=== PATIENT | male | born 1945 | race Caucasian/White ===

== ENCOUNTER 2016-10-30 16:31 | Inpatient (IN) | payer MEDICARE, OTHER ==
[~2016-10-30] VITALS: Ht 172.7 cm; Wt 87.1 kg
[~2016-10-30 16:31] MED LIST changes: -ARIP10TA17 PO; -BUPR100T13 PO; -DONE10TA PO; -GENT5DRO6 BOTH EYES; -IOHEXOL 300 MG/ML 50ml INJECTION ONE; -MEMA28CA PO; -NORMAL SALINE 100 ML ONE; -POLY30DR BOTH EYES; -SALINE FLUSH 10ml SYRINGE ONE; -TAMS0.4C47 PO; -VORT10TA PO
--- OUTSIDE RECORDS SUMMARY | 2016-10-30 16:35 | XMS REPORT | Referral Summary ---
Author Author [facility] Organization [facility] Address Unknown Phone Unavailable Care Team Providers Care Jig Filler Name Role Phone Dom Sierra II Primary Care Physician [phone] Encounter [facility] [id number] Date(s): 05/17/15 - 05/17/15 [facility] [address] [address]- Discharge Diagnosis: Bilateral sensorineural hearing loss Discharge Disposition: 01-Home or Self Care Attending Physician: Cookie Driver Admitting Physician: Cookie Driver Vital Signs No data available for this section Problem List Condition Effective Dates Status Health Status Informant Bilateral Active sensorineural hearing loss(Confirmed) Allergies, Adverse Reactions, Alerts No data available for this section Medications No data available for this section Results No data available for this section Immunizations No data available for this section Procedures No data available for this section Social History No data available for this section Assessment and Plan No data available for this section
--- OUTSIDE RECORDS SUMMARY | 2016-10-30 16:35 | XMS REPORT | Referral Summary ---
Author Author [facility] Organization [facility] Address Unknown Phone Unavailable Care Team Providers Care Skid Adzer Name Role Phone Dom Sierra II Primary Care Physician [phone] Encounter [facility] [id number] Date(s): 09/13/15 - 09/13/15 [facility] [address] [place] [address]- Discharge Diagnosis: Bilateral sensorineural hearing loss Discharge Disposition: 01-Home or Self Care Attending Physician: Cookie Driver Admitting Physician: Cookie Driver Referring Physician: Bora Jones MD Vital Signs No data available for this [...]
--- OUTSIDE RECORDS SUMMARY | 2016-10-30 16:35 | XMS REPORT | Referral Summary ---
Author Organization Unknown Address Unknown Phone Unavailable Care Team Providers Care Surgical Coordinator Name Role Phone Dom Sierra II Primary Care Physician [phone] Encounter [facility] [id number] Date(s): 09/27/14 - 09/27/14 [facility] [address] [place] [address]- Discharge Diagnosis: Sensorineural hearing loss, bilateral Discharge Disposition: Home or Self Care Attending Physician: Cookie Driver Admitting Physician: Cookie Driver Vital Signs No data available for this section Problem List No data available for this section Allergies, Adverse Reactions, Alerts No data available for this section Medications No data available for this section Results No data available for this section Immunizations No data available for this section Procedures No data available for this section Social History No data available for this section Assessment and Plan No data available for this section
--- OUTSIDE RECORDS SUMMARY | 2016-10-30 16:35 | XMS REPORT | Referral Summary ---
Author Author [facility] Organization [facility] Address Unknown Phone Unavailable Care Team Providers Care Solution Design Engineer Name Role Phone Dom Sierra II Primary Care Physician [phone] Encounter [facility] [id number] Date(s): 03/04/15 - 03/04/15 [facility] [address] [place] [address]- Discharge Diagnosis: Bilateral sensorineural hearing loss Discharge [...]
--- OUTSIDE RECORDS SUMMARY | 2016-10-30 16:35 | XMS REPORT | Referral Summary ---
Author Author [facility] Organization [facility] Address Unknown Phone Unavailable Care Team Providers Care Java Software Architect Name Role Phone Dom Sierra II Primary Care Physician [phone] Encounter [facility] [id number] Date(s): 11/25/14 - 11/25/14 [facility] [address] [place] [address]- Discharge Diagnosis: Bilateral sensorineural hearing loss Discharge [...]
--- OUTSIDE RECORDS SUMMARY | 2016-10-30 16:35 | XMS REPORT | Referral Summary ---
Author Author [facility] Organization [facility] Address Unknown Phone Unavailable Care Team Providers Care Polysom Tech Name Role Phone Dom Sierra II Primary Care Physician [phone] Encounter [facility] [id number] Date(s): 02/01/15 - 02/01/15 [facility] [address] [place] [address]- Discharge Diagnosis: Bilateral sensorineural hearing loss Discharge [...]
--- OUTSIDE RECORDS SUMMARY | 2016-10-30 16:35 | XMS REPORT | Continuity of Care Document ---
Author Author [facility] Organization [facility] Address Unknown Phone Unavailable Allergies Medications Problems Procedures Results Encounters ACCT No. Visit Date/Time Discharge Status Pt. Type Provider Facility Loc./Unit Complaint [id number] 06/29/2016 14:10:00 2015 23:59:00 DIS Outpatient Cookie Driver [facility] COOKIE REFIT REPAIRED AID [id number] 09/13/2015 14:00:00 2015 23:59:00 DIS Outpatient Cookie Driver [facility] COOKIE HAC REMOTE NOT WORKING [id number] 05/17/2015 16:03:00 2014 23:59:00 DIS Outpatient Cookie Driver [facility] COOKIE HAC LEFT AID [id number] 03/04/2015 15:17:00 2014 23:59:00 DIS Outpatient Cookie Driver [facility] cNANCY REFIT REPAIRED HEARING AID [id number] 02/01/2015 16:12:00 2014 23:59:00 DIS Outpatient VillaCookie [facility] COOKIE PAIR REMOTE
--- NOTE | 2016-10-30 16:41 | ERPDOC ---
Departure Disposition Decision Date: Oct 30, 2016 Disposition Decision Time: 18:06 Disposition: 64 TO [facility] Impression Impression Impression: Primary Impression: Cognitive and neurobehavioral dysfunction Additional Impression: Dementia with behavioral disturbance Dementia type: Alzheimer's disease Alzheimer's disease onset: unspecified onset Qualified Codes: F02.81 - Dementia in other diseases classified elsewhere with behavioral disturbance; G30.8 - Other Alzheimer's disease Severity: Moderate Condition: Stable Seen By: Physician only Referrals: ROMERO STOCKTON II, MD (Family) Problems/Meds/Labs Reviewed?: Yes Medications reviewed and manag: Yes Follow up care ordered?: Yes Mental Status: Alert, Oriented Scripts Donepezil HCl (Aricept) 10 Mg Tablet 10 MG PO HS for Dementia for 30 Days, #30 TAB Prov: CAMILLE PAK MD 11/06/16 Polyvinyl Alcohol/Povidone/Pf (Refresh Classic Eye Drops) 1 Each Droperette 1 DROP BOTH EYES PRN Y for DRY EYES for 30 Days Prov: LARISSA LEDESMA APRN 11/06/16 Gentamicin Sulfate (Gentak) 5 Ml Drops 2 DROP BOTH EYES QID for 4 Days, DROP Prov: LARISSA LEDESMA APRN 11/06/16 HPI - Psychosocial General Chief Complaint: Psychiatric Problems Stated Complaint: EVAL Time Seen by MD: 16:41 Source: patient, family Exam Limitations: no limitations HPI - Psychosocial Initial Comments Patient is a 71-year-old male presents emergency primary for evaluation of increasing dementia. Patient lives at home with his , has been having increasing outbursts of anger and irritability with Y feeling that she is in danger. Patient was seen by primary medical physician today outpatient laboratories and CT done were noncontributory. Family concern, inability to cares for patient at home so patient was brought to the ER for evaluation. Allergies: Coded Allergies: NKDA (Verified Allergy, Unknown, 10/30/16) Past History Past Medical History Musculoskeletal: osteoarthritis Psychological: dementia Surgical History General: EGD, colonoscopy, hernia Vaccines Hx Influenza Vaccination: Yes (04/2015) Hx Pneumococcal Vaccination: Yes (2010) Social History Smoking Status: Never smoker Substance Use Type: does not use Alcohol Intake: none Review of Systems Constitutional Constitutional: DENIES: appetite decrease, chills, dizziness, fever, weakness Eyes Vision: DENIES: loss of visual rehman ENMT Sinuses: DENIES: congestion, rhinorrhea Mouth/Throat: DENIES: scratchy throat, sore throat Cardiovascular Cardiac: DENIES: chest pain, dyspnea on exertion Pulmonary Respiratory: DENIES: cough, dyspnea, sputum, tachypnea GI Upper Abdomen: DENIES: nausea, pain, vomiting Lower Abdomen: DENIES: constipation, diarrhea, pain General: DENIES: frequency, urgency Musculoskeletal General: DENIES: cramps, pain, weakness Integumentary Skin: DENIES: color change, itching, rash Neurological General: DENIES: change in strength, headache, numbness, weakness Psychiatric Psychiatric: anxiety, emotional instability, irritability Endocrine Endocrine: DENIES: heat/cold intolerance Hematologic/Lymphatic Hematologic/Lymphatic: DENIES: anemia Physical Exam General General Nourishment: well nourished, well developed General Body Habitus: well groomed Vitals and Pain Weight: Kilograms: Height (feet): 5 Height (inches): 10.00 Triage Pain Scale: RN VS reviewed by Provider: Yes Eyes (brief) Eyes Brief: found: EOMI, PERRL ENMT (brief) ENMT Brief: FOUND: TM clear, TM good light reflex, ear canals clear, mucosa moist, normal dentition, NOT FOUND: nasal erythema, nasal exudate, nasal swelling, pharnyx erythema, tonsillar deviation Neck (brief) Neck: NOT FOUND: adenopathy, spasm, tenderness Respiratory (brief) Respiratory: FOUND: clear all rehman, equal bilaterally, NOT FOUND: rales, wheezes Cardiovascular (brief) Cardiac: FOUND: regular rate, regular rhythm Capillary Refill: <2 sec Abdomen (brief) Abdominal Brief: FOUND: bowel normo active x4, soft, NOT FOUND: distended, tender Lymphatic (brief) Lymphatic Brief: NOT FOUND: adenopathy Musculoskeletal (brief) Musculoskeletal Brief: NOT FOUND: spasm, tenderness Integumentary (brief) Integumentary Brief: FOUND: dry, pink, warm, NOT FOUND: rash Neurologic (brief) Neurological Brief: FOUND: CN w/o gross def to obs, motor-no gross deficits, sensory-no gross deficits Psychiatric (brief) Psychiatric Brief: FOUND: alert, oriented Differential Diagnoses Considering: Anxiety, Bipolar, Borderline PD, Cerebral Hemorrhage, Delirium, Dementia, Depression, Hallucinations, Hypoglycemia, Other Intoxication, Kami, Acute Psychosis Progress Results/Orders Orders Procedure Category Date Status Time EKG EKG 10/30/16 Taken 16:39 Cbc W/Auto LAB 10/30/16 Complete Diff-Reflex Manual 16:39 Ua, Dip Wreflex LAB 10/30/16 Complete Microsc & Bread Wrapping Machine Feeder 16:39 Tsh - Thyroid Stim LAB 10/30/16 Complete Hormone 16:39 Chest 1 View RAD 10/30/16 Resulted 16:50 Admit To [facility] ED ADM 10/30/16 Transmitted Unit (Gen) 18:07 Lab Results Laboratory Tests Test 10/30/16 17:03 10/30/16 17:59 White Blood Count 6.9T/MM3 Red Blood Count 5.32M/MM3 Hemoglobin 15.3GM/DL Hematocrit 46.5% Mean Corpuscular Volume 87.4UM3 Mean Corpuscular Hemoglobin 28.8UUG Mean Corpuscular Hemoglobin Concent 32.9GM/DL RDW Standard Deviation 40.9FL Platelet Count 157T/MM3 Mean Platelet Volume 9.8UM3 Immature Granulocyte % (Auto) 0.1% Neutrophils (%) (Auto) 66.2% Lymphocytes (%) (Auto) 25.3% Monocytes (%) (Auto) 5.9% Eosinophils (%) (Auto) 2.2% Basophils (%) (Auto) 0.3% Absolute Immature Granulocyte (auto 0.01T/MM3 Absolute Neutrophils (auto) 4.6T/MM3 Absolute Lymphocytes (auto) 1.8T/MM3 Absolute Monocytes (auto) 0.4T/MM3 Absolute Eosinophils (auto) 0.2T/MM3 Absolute Basophils (auto) 0.0T/MM3 Turbidity < 20 Sodium Level 144MEQ/L Potassium Level 4.5MEQ/L Chloride Level 106MEQ/L Carbon Dioxide Level 25MEQ/L Anion Gap 13MEQ/L Blood Urea Nitrogen 24.0MG/DL Creatinine 1.2MG/DL Glomerular Filtration Rate Calc 60 BUN/Creatinine Ratio 20RATIO Glucose Level 103MG/DL Hemoglobin A1c 5.5% Calculated Osmolality 281MOSM/KG Calcium Level 9.7MG/DL Total Bilirubin 1.10MG/DL Icterus Index < 2 Aspartate Amino Transf (AST/SGOT) 20U/L Alanine Aminotransferase (ALT/SGPT) 22U/L Alkaline Phosphatase 70U/L Total Protein 6.8G/DL Albumin 4.3G/DL Globulin 2.5G/DL Albumin/Globulin Ratio 1.7RATIO Prealbumin 28.7MG/DL Triglycerides Level 108MG/DL Cholesterol Level 142MG/DL LDL Cholesterol, Calculated 82.4 VLDL Cholesterol 21.6MG/DL HDL Cholesterol Direct 38MG/DL Cholesterol/HDL Ratio 3.7RATIO Vitamin B12 Level 403PG/ML Folate > 20.0NG/ML Thyroid Stimulating Hormone (TSH) 0.99MIU/L Chemistry Specimen Hemolysis < 15 Rapid Plasma Reagin Nonreactive Urine Collection Type Voided-not cc-midstr Urine Color Yellow Urine Turbidity Clear Urine pH 6.0 Urine Specific [place] 1.015 Urine Protein Negative Urine Glucose (UA) Negative Urine Ketones Negative Urine Blood Negative Urine Nitrite Negative Urine Bilirubin Negative Urine Urobilinogen 2.0EU/DL Urine Leukocyte Esterase Negative Urinalysis Comment Microscopic not ind. Progress Progress Patient CT scan and laboratories noncontributory from earlier today, have completed medical clearance workup for [facility]. Patient is been screening for [facility] and found to be acceptable for their unit. Patient will be admitted to the [facility], DPOA will sign in EKG EKG : Rate: 60-100 Rhythm: sinus [place]: normal QRS: normal Intervals: normal ST/T: non-specific changes Interpreted by: signing physician Xray Xray : Xray: CXR PA/Lat Interpretation: Normal, Interpreted by ROS Cruz MD Oct 30, 2016 16:41
--- NOTE | 2016-10-30 16:55 | NUR ---
LAB MEAT SEAFOOD ASSOCIATE IN ROOM TO DRAW LABS
[2016-10-30] MEDS ORDERED: BUPR100T13 PO (16:56)
[2016-10-30] MEDS ORDERED: ARIP10TA17 PO (17:02)
[2016-10-30] MEDS ORDERED: VORT10TA PO (17:02)
[2016-10-30] MEDS ORDERED: MEMA28CA PO (17:02)
[2016-10-30] MEDS ORDERED: TAMS0.4C47 PO (17:02)
--- NOTE | 2016-10-30 17:04 | NUR ---
GENERATIONS GENERATIONS SCREEN BEING DONE.
--- OUTSIDE RECORDS SUMMARY | 2016-10-30 17:12 | XMS REPORT | Continuity of Care Document ---
Author Author [facility] Organization [facility] Address Unknown Phone Unavailable Allergies Medications Problems Procedures Results Encounters ACCT No. Visit Date/Time Discharge Status Pt. Type Provider Facility Loc./Unit Complaint [id number] 06/29/2016 14:10:00 2015 23:59:00 DIS Outpatient Cookie Driver Via [facility] COOKIE REFIT REPAIRED AID [id number] 09/13/2015 14:00:00 2015 23:59:00 DIS Outpatient Cookie Driver Via [facility] COOKIE HAC REMOTE NOT WORKING [id number] 05/17/2015 16:03:00 2014 23:59:00 DIS Outpatient Cookie Driver [facility] COOKIE HAC LEFT AID [id number] 03/04/2015 15:17:00 2014 23:59:00 DIS Outpatient Cookie Driver Via [facility] cNANCY REFIT REPAIRED HEARING AID [id number] 02/01/2015 16:12:00 2014 23:59:00 DIS Outpatient VillaCookie [facility] COOKIE PAIR REMOTE
[2016-10-30 17:20] LABS: BASOPHILS % (AUTO) 0.3 % (0-2); EOSINOPHILS # (AUTO) 0.2 T/MM3 (0-0.5); EOSINOPHILS % (AUTO) 2.2 % (0-4); HCT - HEMATOCRIT 46.5 % (41-53); HGB - HEMOGLOBIN 15.3 GM/DL (13.5-17.5); IMMATURE GRANULOCYTE # (AUTO) 0.01 T/MM3 (0.00-0.03); IMMATURE GRANULOCYTE % (AUTO) 0.1 % (0.0-0.5); LYMPHOCYTES # (AUTO) 1.8 T/MM3 (1-4.8); LYMPHOCYTES % (AUTO) 25.3 % (23-45); MEAN CORPUSCULAR HGB 28.8 UUG (26-34); MEAN CORPUSCULAR HGB CONC(MCHC 32.9 GM/DL (31-37); MEAN CORPUSCULAR VOLUME 87.4 UM3 (80-100); MEAN PLATELET VOLUME 9.8 UM3 (9.4-12.4); MONOCYTES # (AUTO) 0.4 T/MM3 (0-0.8); MONOCYTES % (AUTO) 5.9 % (0-9.0); NEUTROPHILS #(AUTO)-ABSOLUTE 4.6 T/MM3 (1.8-7.7); NEUTROPHILS % (AUTO) 66.2 % (33-66); RED BLOOD COUNT 5.32 M/MM3 (4.50-5.90); WBC - WHITE BLOOD COUNT 6.9 T/MM3 (4.5-11.0)
--- NOTE | 2016-10-30 17:35 | NUR ---
COMMUNICATION ELIA COMPLETE WITH EVALUATION.
--- NOTE | 2016-10-30 17:39 | NUR ---
XRAY XRAY IN ROOM W/ PT. FOR PORTABLE
[2016-10-30 18:03] LABS: BLOOD, URINE NEGATIVE (NEGATIVE); COLOR,URINE YELLOW (YELLOW); LEUKOCYTE ESTERASE ,URINE NEGATIVE (NEGATIVE); NITRITE,URINE NEGATIVE (NEGATIVE)
--- NOTE | 2016-10-30 18:07 | NUR ---
COMMUNICATION SPOKE WITH FRANCISCO IN [facility]. HE WILL COME GET THE PATIENT HERE IN A LITTLE BIT.
--- OUTSIDE RECORDS SUMMARY | 2016-10-30 18:28 | XMS REPORT | Continuity of Care Document ---
Author Author [facility] Organization [facility] Address Unknown Phone Unavailable Allergies Medications Problems Procedures Results Encounters ACCT No. Visit Date/Time Discharge Status Pt. Type Provider Facility Loc./Unit Complaint [id number] 06/29/2016 14:10:00 2015 23:59:00 DIS Outpatient Cookie Driver Via [facility] COOKIE REFIT REPAIRED AID [id number] 09/13/2015 14:00:00 2015 23:59:00 DIS Outpatient Cookie Driver Via [facility] COOKIE HAC REMOTE NOT WORKING [id number] 05/17/2015 16:03:00 2014 23:59:00 DIS Outpatient Cookie Driver Via [facility] COOKIE HAC LEFT AID [id number] 03/04/2015 15:17:00 2014 23:59:00 DIS Outpatient Cookie Driver Via [facility] cNANCY REFIT REPAIRED HEARING AID [id number] 02/01/2015 16:12:00 2014 23:59:00 DIS Outpatient Villa[facility] COOKIE PAIR REMOTE
--- NOTE | 2016-10-30 19:24 | NUR ---
NOURISHMENT PATIENT OFFERED PUDDING, CRACKERS AND A SODA.
--- NOTE | 2016-10-30 19:36 | NUR ---
COMMUNICATION SPOKE WITH SON. HAD HIM CALL AND CHECK ON HIS MOM, THE DPOA.
--- NOTE | 2016-10-30 20:26 | NUR ---
FAMILY FINALLY GETS BACK WITH [facility] PAPERWORK. [facility] CALLED.
--- NOTE | 2016-10-30 20:55 | NUR ---
DEPART PATIENT TRANSFERRED TO [facility] WITH [facility] STAFF VIA WHEELCHAIR.
--- NOTE | 2016-10-30 21:00 | NUR ---
Admission Pt is a 71 y/o male admitted to [facility] at 2054 via WC to room [address] [facility], originally coming from home with his spouse. Pt accompanied by family, , son, and daughter in law and [facility] RN. Pt is assist x 1 to stand, but assist x 2 to help with pt sitting down, as pt is very stiff and rigid and has difficulty bending his knees to sit. Pt alert to person only, able to give full name and date, but then is non-sensical when answering questions concerning his current status. Pt in pleasant mood at admission. Flat affect with appropriate behaviors. Hygiene clean with appropriate dress for the season. No skin issues or conditions noted. No abrasions noted. Pt has no valuables left with him. took his wallet home with her. When asking the pt why he is here, pt was unable to give appropriate response and stated "Yes that is a good corporation". Pt is very confused, needing lot of cueing and redirection. Pt stated pt is here due to recent and frequent falling spells at home. denied any aggressive behaviors by spouse during cares. Pt was fatigued, so family was oriented to the unit and to visitation hours. Pt currently sleeping with a CPAP on. Bed rails up x 2 and alarm on. Will continue to monitor
[2016-10-30] MEDS ORDERED: BISACODYL 5 MG E.C. TABLET PO PRN (21:45)
[2016-10-30] MEDS ORDERED: LORAZEPAM 2 MG/ML INJECTION IM PRN (21:45)
[2016-10-30] MEDS ORDERED: HALOPERIDOL 5 MG/ML INJECTION IM PRN (21:45)
[2016-10-30] MEDS ORDERED: HALOPERIDOL 0.5 MG TABLET PO PRN (21:45)
[2016-10-30] MEDS ORDERED: LORAZEPAM 0.5 MG TABLET PO PRN (21:45)
[2016-10-30] MEDS ORDERED: PRN ORDERS MC (21:45)
[2016-10-30 21:51] VITALS: PULSE 65; RESP 15
[2016-10-30 22:01] VITALS: PULSE 68; RESP 16; O2SAT 96
[2016-10-30 22:02] VITALS: Ht 172.7 cm; Wt 87.1 kg
[2016-10-30 22:17] VITALS: BP 162/96; PULSE 65; RESP 15; TEMP 97.9; O2SAT 96
[2016-10-30 22:37] LABS: ALBUMIN 4.3 G/DL (3.5-5.0); ALBUMIN/GLOBULIN RATIO 1.7 RATIO (1.1-2.2); ALKALINE PHOSPHATASE 70 U/L (38-126); ALT (SGPT) 22 U/L (21-72); ANION GAP 13 MEQ/L (5-15); AST (SGOT) 20 U/L (17-59); BUN/CREATININE RATIO 20 RATIO (6-26); CALCIUM 9.7 MG/DL (8.4-10.2); CHLORIDE 106 MEQ/L (98-107); CO2 - CARBON DIOXIDE 25 MEQ/L (22-30); CREATININE 1.2 MG/DL (0.8-1.5); GLOMERULAR FILTRATION RATE 60; GLUCOSE 103 MG/DL (75-110); POTASSIUM 4.5 MEQ/L (3.6-5); SODIUM 144 MEQ/L (134-144); TOTAL PROTEIN 6.8 G/DL (6.3-8.2)
[2016-10-30 22:45] LABS: PREALBUMIN 28.7 MG/DL (17.6-36.0)
[2016-10-30 23:10] LABS: HEMOGLOBIN A1C 5.5 % (6.1-7.9)
--- NOTE | 2016-10-31 01:00 | NUR ---
Bed time Pt is new admit at 2054. Has been in bed since admit, falling asleep during assessment, and falling asleep for the night at 2200.
--- NOTE | 2016-10-31 01:00 | NUR ---
Chart Check 24 hour chart check completed
--- NOTE | 2016-10-31 01:59 | NUR ---
Tobacco Consult Patient unable to state smoking history, per /dpoa patient has never smoked. RT consulted for admission assessment.
[2016-10-31 03:42] LABS: VITAMIN B12 - BATCH 403 PG/ML (239-931)
[2016-10-31 04:08] LABS: FOLATE > 20.0 NG/ML (2.76-20)
--- NOTE | 2016-10-31 05:42 | NUR ---
Summary Pt is a new admit to room 193. Pt has been sleeping since 2199, but was up at 0115, sitting on side of bed and had taken off his CPAP and all his clothes. Toileting offered. Staff dressed pt and placed CPAP back on. Pt was confused at that time, not knowing what to do with his legs. Pt is alert to person. Up assist x 1-2. Pt has been rigid and tense when asking pt to sit during transferring or toileting. Lots of cueing and directing is required with pt as he does not comprehend what he needs to do. Pt answers some questions appropriately, and others he responds in non-sensical sentences. Pt has not displayed any verbal or physical aggression since admission. No PRNs given. Pt is high risk for falls, as stated he has been having falling episodes at home. Pt does not use any assistive devices to ambulate at home, per . Currently sleeping. Bed rails up x 2 and alarm on. Will continue to monitor
[2016-10-31] MEDS ORDERED: BISACODYL 10 MG SUPPOSITORY RECTALLY PRN (08:15)
--- NOTE | 2016-10-31 08:17 | DI ---
Indication: ITS.REASON: [facility] eval PROCEDURE: CHEST 1 VIEW: Encounter: Initial Comparison: None FINDINGS: The lungs are clear. There is no abnormal airspace opacity, pleural effusion or pneumothorax identified. The heart size, pulmonary vasculature and mediastinum are within normal limits. IMPRESSION: No acute cardiopulmonary abnormality. .
[2016-10-31 08:44] VITALS: BP 138/84; PULSE 55; RESP 14; TEMP 97.7; O2SAT 95
[2016-10-31] MEDS ORDERED: MEMANTINE HCL 28 MG PO SCH (09:00)
[2016-10-31] MEDS ORDERED: DONEPEZIL 10 MG TABLET PO SCH (09:00)
--- NOTE | 2016-10-31 10:00 | NUR ---
Patient slept a total of 10.75 hours last night
[2016-10-31] MEDS: ARIPIPRAZOLE 10 MG TABLET PO SCH (10:40)
[2016-10-31] MEDS: [UNRECOGNIZED DRUG - OTHER] PO SCH (10:41)
[2016-10-31] MEDS: MECLIZINE 12.5 MG TABLET PO SCH (10:41)
[2016-10-31] MEDS: ASPIRIN *EC* 81mg TABLET PO SCH (10:41)
[2016-10-31] MEDS: MEMANTINE 5 MG TABLET PO SCH ×2 (10:41→19:37)
[2016-10-31] MEDS: VORTIOXETINE 10 MG TABLET PO SCH (10:41)
--- NOTE | 2016-10-31 13:08 | NUR ---
Patient Status Patient sleeps in until 1000; slept through VS and assessment this morning. He greets this health underwriter directly this morning with a smile and acknowledgment that he is in the hospital. He is not able to tell [me] the name of this town or day of the week. He is cooperative with cares, uses the bathroom and is able to make his needs known. During ambulation from bathroom to bed patient leaned against the door frame and began shaking quite Addendum: 10/31/16 at 1314 by FLORA MG RN *and began shaking, almost "convulsing" for approx 4 seconds. He requested to sit in the wheelchair to be taken to breakfast. Patient's called for a status update, stated that he "shakes" like that "often". He denies pain or discomfort. He ate 50% of breakfast and 100% of lunch independently, took all medications whole one at a time per his request. Presently he is in the day room with other patients and staff tossing the [email or web address] ball
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
--- NOTE | 2016-10-31 14:43 | NUR ---
ELIECER CM LEFT FOR PT SPOUSE NEELAM. CM EXPLAINED ROLE AND PROVIDED CONTACT INFORMATION.
--- NOTE | 2016-10-31 14:51 | NUR ---
BLOCK PAVER--PM GROUP Pt. was in bed sleeping and did not participate in afternoon psychoeducational group facilitated by [facility].
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
--- NOTE | 2016-10-31 15:47 | HPPDOC ---
KELTON MERAZ V BAGGAGE PORTER 10/31/16 1542: HPI - Adult Date DATE: 10/31/16 TIME: 15:37 General Chief Complaint: Dementia with behaviors History of Present Illness Dejuan is a pleasant 71-year-old male who was brought to the emergency room last evening for evaluation of behaviors and aggression towards his at home. It is unclear specifics for timeframe in which this has been ongoing as emergency room documentation is not completed. Patient has a known history of Alzheimer's dementia. In the emergency room further evaluation including laboratory studies were obtained. The BBC count 6.9, hemoglobin 15.3, hematocrit 46.5, platelet count 157. Sodium 144, potassium 4.5, BUN 24, creatinine 1.2, hemoglobin A1c 5.5. TSH 0.99. A urinalysis was obtained that was unremarkable. initial vital signs are reviewed. Denies 7.8, pulse 61, respiration rate 14, blood pressure 163/88, room air saturations 96%. Patient was screened and accepted to the [facility] for further psychiatric evaluation and treatment. Dejuan is seen this morning for initial consultation. He is alert and appropriate. He is unable to give any information guarding past medical history. Past Medical History Past Medical History Alzheimer's dementia. Hypertriglyceridemia. Depression Anxiety Osteoarthritis Surgical History Patient's Surgical History: EGD/colonoscopy-04/2011. Right inguinal hernia repair at age 27 Current Medications Home Meds Reported Medications Tamsulosin HCl (Tamsulosin HCl) 0.4 Mg Cap.er.24h, 0.4 MG PO HS, CAP Take 1 capsule, by mouth, 1 time a day (at BEDTIME). 10/30/16 Vortioxetine Hydrobromide (Brintellix) 10 Mg Tablet, 10 MG PO DAILY 10/30/16 Aripiprazole (Aripiprazole) 10 Mg Tablet, 10 MG PO DAILY 10/30/16 Memantine HCl (Namenda Xr) 28 Mg Cap.spr.24, 28 MG PO DAILY, CAP 10/30/16 Bupropion HCl (Bupropion HCl) 100 Mg Tablet, 200 MG PO DAILY 10/30/16 Donepezil HCl (Donepezil HCl) 10 Mg Tablet, 1 TAB PO DAILY 05/10/15 Meclizine HCl (Meclizine HCl) 12.5 Mg Tablet, 1 TAB PO DAILY 05/10/15 Aspirin (Aspir 81) 81 Mg Tablet., 81 MG PO DAILY 04/18/11 Allergies: Coded Allergies: NKDA (Verified Allergy, Unknown, 10/30/16) Family History Family History: Mother with osteoarthritis Social History Smoking Status: Unknown if ever smoked Substance Use Type: does not use Alcohol Intake: none Marital Status: Sexuality: female partner Housing: house Household Members: spouse Advance Directives: Yes DPOA for Healthcare Only ( Akilah Jones DPOA) Social History Comments Primary care provider, Dr. Sierra Review of Systems Unable to Obtain ROS Due to: dementia Comments Although patient denies review of systems during examination is unclear if these are accurate, due to his dementia Physical Exam General General Nourishment: well nourished, well developed, adult Vital Signs Vital Signs Date Time Temp Pulse Resp B/P Pulse Ox O2 Delivery O2 Flow Rate FiO2 10/31/16 08:44 97.7 55 14 138/84 95 Room Air Height (Feet): 5 Height (Inches): 8.00 ENMT Brief: FOUND: mucosa moist Respiratory Brief: FOUND: clear all rehman, equal bilaterally Cardiovascular (brief) Cardiac Brief: FOUND: regular rate, regular rhythm, NOT FOUND: pedal edema Abdomen (brief) Abdominal Brief: FOUND: BS normo active x4, soft, NOT FOUND: distended, tender Integumentary (brief) Integumentary Brief: FOUND: dry, pink, warm Neurologic (brief) Neurological Brief: FOUND: cranial 2-12 intact (grossly intact), motor ( strength and sales advisor equal bilaterally) Neurologic RN Documented GCS Eye Opening: (4)Spontaneous Verbal: (4)Confused Motor: (6)Obeys Commands Total: Psychiatric (brief) FOUND: alert, attentive, normal affect Laboratory Laboratory Tests Test 10/30/16 17:03 10/30/16 17:59 White Blood Count 6.9T/MM3 Red Blood Count 5.32M/MM3 Hemoglobin 15.3GM/DL Hematocrit 46.5% Mean Corpuscular Volume 87.4UM3 Mean Corpuscular Hemoglobin 28.8UUG Mean Corpuscular Hemoglobin Concent 32.9GM/DL RDW Standard Deviation 40.9FL Platelet Count 157T/MM3 Mean Platelet Volume 9.8UM3 Immature Granulocyte % (Auto) 0.1% Neutrophils (%) (Auto) 66.2% Lymphocytes (%) (Auto) 25.3% Monocytes (%) (Auto) 5.9% Eosinophils (%) (Auto) 2.2% Basophils (%) (Auto) 0.3% Absolute Immature Granulocyte (auto 0.01T/MM3 Absolute Neutrophils (auto) 4.6T/MM3 Absolute Lymphocytes (auto) 1.8T/MM3 Absolute Monocytes (auto) 0.4T/MM3 Absolute Eosinophils (auto) 0.2T/MM3 Absolute Basophils (auto) 0.0T/MM3 Turbidity < 20 Sodium Level 144MEQ/L Potassium Level 4.5MEQ/L Chloride Level 106MEQ/L Carbon Dioxide Level 25MEQ/L Anion Gap 13MEQ/L Blood Urea Nitrogen 24.0MG/DL Creatinine 1.2MG/DL Glomerular Filtration Rate Calc 60 BUN/Creatinine Ratio 20RATIO Glucose Level 103MG/DL Hemoglobin A1c 5.5% Calculated Osmolality 281MOSM/KG Calcium Level 9.7MG/DL Total Bilirubin 1.10MG/DL Icterus Index < 2 Aspartate Amino Transf (AST/SGOT) 20U/L Alanine Aminotransferase (ALT/SGPT) 22U/L Alkaline Phosphatase 70U/L Total Protein 6.8G/DL Albumin 4.3G/DL Globulin 2.5G/DL Albumin/Globulin Ratio 1.7RATIO Prealbumin 28.7MG/DL Vitamin B12 Level 403PG/ML Folate > 20.0NG/ML Thyroid Stimulating Hormone (TSH) 0.99MIU/L Chemistry Specimen Hemolysis < 15 Urine Collection Type Voided-not cc-midstr Urine Color Yellow Urine Turbidity Clear Urine pH 6.0 Urine Specific [place] 1.015 Urine Protein Negative Urine Glucose (UA) Negative Urine Ketones Negative Urine Blood Negative Urine Nitrite Negative Urine Bilirubin Negative Urine Urobilinogen 2.0EU/DL Urine Leukocyte Esterase Negative Urinalysis Comment Microscopic not ind. Assessment & Plan Problems: (1) Dementia with behavioral disturbance Status: Acute Qualifiers: Dementia type: Alzheimer's disease Alzheimer's disease onset: unspecified onset Qualified Codes: F02.81 - Dementia in other diseases classified elsewhere with behavioral disturbance; G30.8 - Other Alzheimer's disease (2) Cognitive and neurobehavioral dysfunction Status: Acute (3) Hypertriglyceridemia Status: Chronic (4) Anxiety Status: Chronic (5) Depression Status: Chronic (6) Osteoarthritis Status: Chronic Plan/Intensity of Service Agree with admission to [facility] under the care of Dr. Jimenez for further psychiatric evaluation and treatment. All admission laboratory studies are reviewed. Overall, patient appears to be medically stable. Will monitor blood pressure routinely Continue routine home medications including ASA, meclizine and Flomax Dulcolax suppository as needed for bowel motivation Encourage patient to participate in unit activities and provide a safe environment Appreciate medical consultation for management of his existing comorbidities. The hospitalist services will continue to follow patient medically manage him during his stay in [facility]. At time of discharge his medical care will return to his primary care provider, Dr. Sierra Code Status Full Code, unverified Hospital Course Summary Disclaimer The hospital course summary below is not to be considered part of the above Progress Note. Hospital Course Summary Agree with admission to [facility] under the care of Dr. Jimenez for further psychiatric evaluation and treatment. All admission laboratory studies are reviewed. Overall, patient appears to be medically stable. Will monitor blood pressure routinely Continue routine home medications including ASA, meclizine and Flomax Dulcolax suppository as needed for bowel motivation Encourage patient to participate in unit activities and provide a safe environment Appreciate medical consultation for management of his existing comorbidities. The hospitalist services will continue to follow patient medically manage him during his stay in [facility]. At time of discharge his medical care will return to his primary care provider, ADEOLA Levine MD 10/31/161923: Past Medical History Current Medications Home Meds Reported Medications Tamsulosin HCl (Tamsulosin HCl) 0.4 Mg Cap.er.24h, 0.4 MG PO HS, CAP Take 1 capsule, by mouth, 1 time a day (at BEDTIME). 10/30/16 Vortioxetine Hydrobromide (Brintellix) 10 Mg Tablet, 10 MG PO DAILY 10/30/16 Aripiprazole (Aripiprazole) 10 Mg Tablet, 10 MG PO DAILY 10/30/16 Memantine HCl (Namenda Xr) 28 Mg Cap.spr.24, 28 MG PO DAILY, CAP 10/30/16 Bupropion HCl (Bupropion HCl) 100 Mg Tablet, 200 MG PO DAILY 10/30/16 Donepezil HCl (Donepezil HCl) 10 Mg Tablet, 1 TAB PO DAILY 05/10/15 Meclizine HCl (Meclizine HCl) 12.5 Mg Tablet, 1 TAB PO DAILY 05/10/15 Aspirin (Aspir 81) 81 Mg Tablet.dr, 81 MG PO DAILY 04/18/11 Allergies: Coded Allergies: NKDA (Verified Allergy, Unknown, 10/30/16) Assessment & Plan Problems: (1) Dementia with behavioral disturbance Status: Acute Qualifiers: Dementia type: Alzheimer's disease Alzheimer's disease onset: unspecified onset Qualified Codes: F02.81 - Dementia in other diseases classified elsewhere with behavioral disturbance; G30.8 - Other Alzheimer's disease (2) Cognitive and neurobehavioral dysfunction Status: Acute (3) Hypertriglyceridemia Status: Chronic (4) Anxiety Status: Chronic (5) Depression Status: Chronic (6) Osteoarthritis Status: Chronic (7) BPH (benign prostatic hyperplasia) Status: Chronic Qualifiers: Prostatic enlargement morphology: unspecified morphology Lower urinary tract symptom presence: presence of symptoms unspecified Qualified Codes: N40.0 - Benign prostatic hyperplasia without lower urinary tract symptoms (8) Overweight (BMI 25.0-29.9) Status: Chronic Plan/Intensity of Service Have independently interviewed and examined pt. Chart reviewed. Case discussed with my BAGGAGE PORTER. Above care plan developed with my supervision; agree with above. Medically doing well. Breathing stable without SOA, cough or congestion. Denies sinus pressure or pain. No chest pressure or fullness. Not having ab pain or nausea. Lungs: clear bilaterally, no distress on RA. CV: regular AB; soft nt/nd MSE: awake alert appropriate Plan: Agree with admission of pt to [facility] for geropsychiatric evaluation and treatment. Psychiatry to manage and adjust psychoactive medications. Continue chronic home meds. Provide safe, supportive environment. Encourage [facility] group activities. Medically stable for [facility] floor activities. KELTON MERAZ APRN Oct 31, 2016 15:42 ADEOLA WALLER MD Oct 31, 2016 19:24
[2016-10-31 16:30] VITALS: BP 125/70; PULSE 73; RESP 16; TEMP 99.3; O2SAT 94
--- NOTE | 2016-10-31 18:37 | NUR ---
Shift Summary This afternoon patient napped between [id number]. His visited this afternoon and patient appeared comfortable with his 's presence. He uses the wheelchair to go long distances; will ambulate in his room though consistently requires 2 staff persons as he is very weak, knees tend to give out and he crosses his legs. He has had no agitated or aggressive behaviors, has greeted staff with smiles and delayed speech throughout the day. Presently he is sitting in the day room watching [employer]
[2016-10-31] MEDS: TAMSULOSIN 0.4 MG CAPSULE PO SCH (19:37)
[2016-10-31 20:47] VITALS: PULSE 78; RESP 18
[2016-10-31 21:10] VITALS: BP 103/60; PULSE 78; RESP 18; TEMP 97.6; O2SAT 97
[2016-11-01] VITALS (7 sets, daily range): BP systolic 103–175; BP diastolic 65–100; PULSE 71–78; RESP 16–18; TEMP 97.3–98.4; O2SAT 93–99
--- NOTE | 2016-11-01 00:16 | NUR ---
Chart Check 24 hour chart check completed
--- NOTE | 2016-11-01 00:16 | NUR ---
Bed time Pt went to bed at 2029 and was asleep at 2044. Slept 2.25 on day shift in afternoon. Currently sleeping. Bed rails up x 2 and alarm on. Will continue to monitor
--- NOTE | 2016-11-01 00:19 | NUR ---
Mid shift status Pt was sitting in day room at beginning of shift. Pt pleasant and cooperative with assessment. Alert to person. Assist x 1-2 to ambulate or to . When transferring pt to , he still tends to stiffen his legs when trying to have him sit down. Pt has to be directed multiple times with lots of cueing. Pt compliant with all HS meds, taking whole, one pill at a time. Pt was given a shower this shift and was cooperative, with no signs of aggression during cares. Pt has not displayed any verbal or physical aggression this shift. No PRNs given. Pt CPAP placed on him when he was put in bed. Pt has been leaving it on. Pt is appreciative of staff for helping him. Currently sleeping. Bed rails up x 2 and alarm on. Will continue to monitor
[2016-11-01 01:16] LABS: LDL CHOLESTEROL,CALCULATED 82.4 (66-159); RISK FACTOR 3.7 RATIO (0-5.0); VLDL CHOLESTEROL 21.6 MG/DL (0-28)
--- NOTE | 2016-11-01 05:27 | NUR ---
Summary Pt has been sleeping all shift since 2044. Pt alert to person. Up assist x 1-2. Pt has not displayed any verbal or physical aggression this shift. No PRNs given. Pt is wearing his CPAP. Compliant with meds. Pt received a shower this shift and was cooperative. Currently sleeping. Bed rails up x 2 and alarm on. Will continue to monitor
[2016-11-01] MEDS: MEMANTINE 5 MG TABLET PO SCH ×2 (09:12→20:26)
[2016-11-01] MEDS: ARIPIPRAZOLE 10 MG TABLET PO SCH (09:12)
[2016-11-01] MEDS: MECLIZINE 12.5 MG TABLET PO SCH (09:12)
[2016-11-01] MEDS: [UNRECOGNIZED DRUG - OTHER] PO SCH (09:12)
[2016-11-01] MEDS: VORTIOXETINE 10 MG TABLET PO SCH (09:12)
[2016-11-01] MEDS: ASPIRIN *EC* 81mg TABLET PO SCH (09:12)
--- NOTE | 2016-11-01 10:21 | NUR ---
wake up note Patient went to sleep at 2044 and woke up at 0600 this morning.
--- NOTE | 2016-11-01 11:01 | NUR ---
CURRICULUM DESIGNER--AM GROUP Pt. was present but only passively engaged in psychoeducational group facilitated by [facility]. He was sitting at table with AF and another patient. Patients were asked to identify those person(s) from their past who had an importance influence on their life. Patient did not attempt to answer any of the questions asked. Finished group by listening to variety of music from childhood. Pt. would glance at this SW but otherwise facial expression did not change.
--- NOTE | 2016-11-01 11:32 | NUR ---
SLUMS EXAMINATION PATIENT SCORE A 9 ON THE SLUMS EXAMINATION, WHEN ASKED TO DRAW THE CLOCK OR PUT AN X IN THE TRIABLE AND A [place] IN THE LARGEST OBJECT PATIENT STARED AT THE PAPER FOR A WHILE AND WAS NOT ABLE TO DO IT.
--- NOTE | 2016-11-01 12:45 | NUR ---
STATUS Patient is AO x 1. Patient has been pleasant, cooperative with cares and assessment, delay speech pattern, unsteady gait. he took his medications whole 2 at a time with out any problems, no aggressive behaviors noted, no hallucinations noted, patient has a flat affect, does not smile, does not initiate conversation unless he is spoken to. He came out to the dining room for meals and ate 100 % of breakfast and lunch. Patient denies any pain at the moment. Patient denies needs or concerns at the moment.
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
--- NOTE | 2016-11-01 15:13 | NUR ---
CM CM SPOKE WITH PT SPOUSE NEELAM. NEELAM WOULD LIKE PT TO GO TO [facility] AT TIME OF D/C FROM [facility] IF PSYCH DR FEELS THAT IS APPROPRIATE. NEELAM IS AWARE THAT CM WILL REACH OUT TO [facility] AND ASK THEM TO CONTACT SPOUSE TO DISCUSS FINANCIAL BASED ON AREA IN FACILITY MOST APPROPRIATE FOR PT. SPOUSE AWARE TO CONTACT CM IF NEEDS [facility].
--- NOTE | 2016-11-01 15:19 | NUR ---
DESK CLERK--INDIVIDUAL LSCSW met 1:1 with pt. as he was sitting in recliner in day room. Pt. demonstrates confused but pleasant mood. 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 Pt. stated he was in a "predicament." He said he and his went to the doctor's for some testing. He thought his was also a patient somewhere in the hospital and he had no way to communicate with her. This SW assured pt. that his was not in the hospital and that she would be coming to visit later this afternoon. Pt. was advised that he is able to request a phone from any staff member so that he can make a phone call. Pt. seemed relieved by the information though not sure how much he will be able to retain.
--- NOTE | 2016-11-01 17:55 | NUR ---
SHIFT SUMMARY Patient is AO x 1. patient was compliant with medications, he took his medications whole 2 at a time without an problems. Patient interacted well with staff when he was out in the day room and dining room, he socialize for a little bit with staff. Patient did well with cares, he needed cueing with cares and process thoughts slowly. patient denied any pain this shift. Patient has a flat affect, delay speech. patient did not had any aggressive behaviors no hallucinations noted, No PRN medications given. Patient is currently visiting with , he is able to feed him self, he ate 100 % of all meals. Patient denies needs or concerns at the moment.
[2016-11-01] MEDS: TAMSULOSIN 0.4 MG CAPSULE PO SCH (20:26)
[2016-11-01] MEDS: DONEPEZIL 10 MG TABLET PO SCH (20:26)
--- NOTE | 2016-11-01 21:04 | GENPN ---
[facility] Subjective Date DATE: 11/01/16 TIME: 09:12 Subjective/Severity of Illness Medications Current Medications Medications (Trade) Dose Ordered Sig/[place] Start Time Stop Time Status Last Admin Dose Admin Miscellaneous Medication (May use PRN orders) 1 PRN PRN 10/30/16 21:45 Haloperidol (Haldol) 0.5 mg Q6H PRN 10/30/16 21:45 Lorazepam (Ativan) 0.5 mg Q6H PRN 10/30/16 21:45 Lorazepam (Ativan) 0.5 mg Q6H PRN 10/30/16 21:45 Haloperidol Lactate (Haldol 5 Mg/ml Inj) 0.5 mg Q6H PRN 10/30/16 21:45 Bisacodyl (Dulcolax) 10 mg DAILY PRN 10/30/16 21:45 Aripiprazole (Abilify) 10 mg DAILY 10/31/16 09:00 10/31/16 10:40 10 MG Aspirin (Ecotrin) 81 mg DAILY 10/31/16 09:00 10/31/16 10:41 81 MG Bupropion HCl (Wellbutrin Ir) 200 mg DAILY 10/31/16 09:00 10/31/16 10:41 200 MG Donepezil HCl (Aricept) 10 mg DAILY 10/31/16 09:00 10/31/16 17:40 DC 10/31/16 10:41 10 MG Meclizine HCl (Antivert 12.5 Mg) 12.5 mg DAILY 10/31/16 09:00 10/31/16 10:41 12.5 MG Tamsulosin HCl (FLOMAX 0.4 mg) 0.4 mg HS 10/31/16 21:00 10/31/16 19:37 0.4 MG Vortioxetine (Trintellix) 10 mg DAILY 10/31/16 09:00 10/31/16 10:41 10 MG Non-Formulary Medication 28 mg DAILY 10/31/16 09:00 10/31/16 09:00 DC Memantine (Namenda) 15 mg BID 10/31/16 09:00 10/31/16 19:37 15 MG Bisacodyl (Dulcolax) 10 mg DAILY PRN 10/31/16 08:15 10/31/16 08:15 10 MG Artificial Tears (Refresh Classic Drops) 1 drop PRN PRN 10/31/16 17:15 Donepezil HCl (Aricept) 10 mg HS 11/01/16 21:00 Subjective Patient seen and chart reviewed. Patient is sitting at dining room table eating alongside peer on approach. He is pleasant and polite throughout interview. He often answers questions illogically due to dementia. He denies any physical complaints, SI, HI, AVH. Per staff, patient has been cooperative overall with no significant behavioral difficulties. Patient slept well overnight (10+ hours) in addition to a 2.25 hour nap yesterday. VSS. Appetite good. No psychotropic PRNs required in the past 24 hours. Start Time: 10:00 Stop Time: 10:20 Care >50% of this visit spent in counseling/coordination care. [facility] Exam Vitals Vital Signs Date Time Temp Pulse Resp B/P Pulse Ox O2 Delivery O2 Flow Rate FiO2 11/01/16 09:11 97.4 73 16 103/65 93 Room Air Physical examination performed by the hospitalist. Height (Feet): 5 Height (Inches): 8.00 Mental Status Exam Muscle Strength/Tone: Normal Dressing: Casual Grooming: Good Attitude: Cooperative Motor Activity: Retardation, Tremors Eye Contact: Fair Speech: Slowed (with increased latency) Volume: Normal Sensory: Alert Orientation: Disoriented to time, Disoriented to place, Disoriented to situation, Oriented to person Mood: Neutral Affect: Blunted Rate of Thoughts: Delayed Thought Organization: Confused Associations: Illogical Abstract Reasoning: Impaired, concrete Computation: Poor Computation Thought Content: Other (No abnormal thought content elicited other cognitive changes due to dementia) Perception/Psychotic: Psychotic Current Hallucinations: Auditory (reported by , not observed on unit) Attention Span/Concentration: Short Span Language: Naming Impaired Fund of Knowledge: Poor fund of knowledge Memory: Poor-immediate, Poor-recent Suicidal Ideation: Denies Homicidal Ideation: Denies Insight: Impaired Judgment: Impaired Impulse Control: Other (Has been good on the unit, reportedly poor at home with ) Assessment and Plan (1) Dementia with behavioral disturbance Assessment: r/o Lewy body dementia, r/o Parkinson's disease/psychosis 11/01/16: Patient has not yet exhibited any problematic behavior on the unit. I suspect environmental change has been beneficial for patient's behavior and impulse control is such that he can maintain his behavior with caregivers other than his ; will continue to monitor. Qualifiers: Qualified Codes: F02.81 - Dementia in other diseases classified elsewhere with behavioral disturbance; G30.8 - Other Alzheimer's disease (2) Osteoarthritis (3) Hypertriglyceridemia (4) BPH (benign prostatic hyperplasia) Qualifiers: Qualified Codes: N40.0 - Benign prostatic hyperplasia without lower urinary tract symptoms (5) Overweight (BMI 25.0-29.9) CAMILLE PAK MD Nov 01, 2016 09:12
--- NOTE | 2016-11-01 21:30 | NUR ---
patient status/bedtime Pt went to bed at 21:30, pt alert and oriented x1, pt had a good visit with family, pt took hs meds, pt little resistive to hs cares, pt did agree to change, pt cooperative with assessment, meds, vitals. Pt is in bed with 2 bed rails up and bed alarm on.
--- NOTE | 2016-11-02 04:00 | NUR ---
Chart Check 24 hour chart check completed
--- NOTE | 2016-11-02 06:30 | NUR ---
shift summary Pt is sleeping in bed, pt is alert and oriented x1, pt slept well up and couple of times to the bathroom allowed staff to help with cares. Pt is in bed with 2 bed rails up and bed alarm on.
[2016-11-02 09:13] VITALS: BP 136/79; PULSE 76; RESP 18; TEMP 96.8; O2SAT 93
[2016-11-02] MEDS: ASPIRIN *EC* 81mg TABLET PO SCH (09:17)
[2016-11-02] MEDS: [UNRECOGNIZED DRUG - OTHER] PO SCH (09:17)
[2016-11-02] MEDS: VORTIOXETINE 10 MG TABLET PO SCH (09:17)
[2016-11-02] MEDS: ARIPIPRAZOLE 10 MG TABLET PO SCH (09:17)
[2016-11-02] MEDS: MECLIZINE 12.5 MG TABLET PO SCH (09:18)
[2016-11-02] MEDS: MEMANTINE 5 MG TABLET PO SCH ×2 (09:18→20:14)
[2016-11-02 09:22] VITALS: RESP 18
--- NOTE | 2016-11-02 09:23 | NUR ---
Status Pt went to bed at 2200 and awoke at 0900. Pt completed hygiene with no issues, was incontinent/continent this morning. Pt denies any pain or discomfort this morning. Pt eating breakfast at this time, will continue to monitor.
--- NOTE | 2016-11-02 10:50 | NUR ---
WATCH TRAIN ASSEMBLER--AM GROUP PT. was present and actively participated in psychoeducational group facilitated by [facility]. Topic was on facing personal challenges. Patients were asked to identify the resources they use to help sustain them when faced with a difficult issue in life. Pt. identified "God" as his strength. Another pt. identified his as his strength. Another pt. mentioned he uses his art work and visualization. Read story about older woman attending college. Talked about never being too old to learn, importance of finding humor everyday and being flexible to change. Pt. was alert, Ox1, calm with pleasant mood. He answered questions that were asked of him though it takes several seconds for him to find the words to express himself. Finished up group by listening to a variety of Jainism Hymns. Pt. was attentive while others spoke; he did not sing along with the songs (though it may be indicative of his anabaptism culture).
--- NOTE | 2016-11-02 13:20 | NUR ---
ENVIRONMENT FRIENDLY LANDSCAPE DESIGNER--[place] PLAN LSCSW called and left message for pt's /DPOA-HC (Akilah) regarding review of proposed [place] plan. CSW called and spoke with pt's step-son/DPOA-HC (Jacob Ahmadi). Reviewed contents of proposed [place] plan. He had no additions or changes and gave permission to sign his name on the form.
--- NOTE | 2016-11-02 14:46 | NUR ---
ELIECER GONZÁLES SPOKE WITH KELTON FROM [place] REGARDING REFERRAL. KELTON WILL CONTACT PT SPOUSE AND DISCUSS OPTIONS RELATED TO PLACEMENT AND FINANCIALS. KELTON AWARE TO CONTACT ELIECER IF NEEDS ARISE. ELIECER WILL FAX KELTON INFORMATION ON PT WHEN APPROPRIATE.
--- NOTE | 2016-11-02 15:25 | GENPN ---
[facility] Subjective Date DATE: 11/02/16 TIME: 10:15 Subjective/Severity of Illness Medications Current Medications Medications (Trade) Dose Ordered Sig/[place] Start Time Stop Time Status Last Admin Dose Admin Miscellaneous Medication (May use PRN orders) 1 PRN PRN 10/30/16 21:45 Haloperidol (Haldol) 0.5 mg Q6H PRN 10/30/16 21:45 Lorazepam (Ativan) 0.5 mg Q6H PRN 10/30/16 21:45 Lorazepam (Ativan) 0.5 mg Q6H PRN 10/30/16 21:45 Haloperidol Lactate (Haldol 5 Mg/ml Inj) 0.5 mg Q6H PRN 10/30/16 21:45 Bisacodyl (Dulcolax) 10 mg DAILY PRN 10/30/16 21:45 Aripiprazole (Abilify) 10 mg DAILY 10/31/16 09:00 11/02/16 09:17 10 MG Aspirin (Ecotrin) 81 mg DAILY 10/31/16 09:00 11/02/16 09:17 81 MG Bupropion HCl (Wellbutrin Ir) 200 mg DAILY 10/31/16 09:00 11/02/16 09:17 200 MG Donepezil HCl (Aricept) 10 mg DAILY 10/31/16 09:00 10/31/16 17:40 DC 10/31/16 10:41 10 MG Meclizine HCl (Antivert 12.5 Mg) 12.5 mg DAILY 10/31/16 09:00 11/02/16 09:18 12.5 MG Tamsulosin HCl (FLOMAX 0.4 mg) 0.4 mg HS 10/31/16 21:00 11/01/16 20:26 0.4 MG Vortioxetine (Trintellix) 10 mg DAILY 10/31/16 09:00 11/02/16 09:17 10 MG Non-Formulary Medication 28 mg DAILY 10/31/16 09:00 10/31/16 09:00 DC Memantine (Namenda) 15 mg BID 10/31/16 09:00 11/02/16 09:18 15 MG Bisacodyl (Dulcolax) 10 mg DAILY PRN 10/31/16 08:15 10/31/16 08:15 10 MG Artificial Tears (Refresh Classic Drops) 1 drop PRN PRN 10/31/16 17:15 Donepezil HCl (Aricept) 10 mg HS 11/01/16 21:00 11/01/16 20:26 10 MG Subjective Patient seen and chart reviewed. Patient is sitting in chairs in dayroom, alongside peers on approach. He is pleasant and polite throughout interview. He often answers questions illogically due to dementia. He denies any physical complaints, SI, HI, AVH. Per staff, patient has been cooperative overall but obviously felt uncomfortable with female staff providing cares last night and asked if his was approving of this. Patient slept well overnight (11 hours). VSS. Appetite good. No psychotropic PRNs required in the past 24 hours. Start Time: 10:30 Stop Time: 10:50 Care >50% of this visit spent in counseling/coordination care. Generations Exam Vitals Vital Signs Date Time Temp Pulse Resp B/P Pulse Ox O2 Delivery O2 Flow Rate FiO2 11/02/16 09:22 18 11/02/16 09:13 96.8 76 136/79 93 Room Air Physical examination performed by the hospitalist. Height (Feet): 5 Height (Inches): 8.00 Mental Status Exam Muscle Strength/Tone: Rigid Dressing: Casual Grooming: Good Attitude: Cooperative Motor Activity: Retardation, Tremors Eye Contact: Good Speech: Slowed Volume: Normal Rhythm: Appropriate Rhythm Sensory: Alert Orientation: Disoriented to time, Disoriented to place, Disoriented to situation, Oriented to person Mood: Neutral Affect: Restricted Rate of Thoughts: Delayed Thought Organization: Confused Associations: Illogical Abstract Reasoning: Poor abstract reasoning Thought Content: Other (No abnormal thought content elicited) Perception/Psychotic: Psychotic Current Hallucinations: Auditory (reported by ; have not observed patient responding to internal stimuli on the unit) Attention Span/Concentration: Short Span Language: Naming Impaired Fund of Knowledge: Poor fund of knowledge Memory: Poor-immediate, Poor-recent Suicidal Ideation: Denies Homicidal Ideation: Denies Insight: Impaired Judgment: Impaired Impulse Control: Fair Assessment and Plan (1) Dementia with behavioral disturbance Assessment: r/o Lewy body dementia, r/o Parkinson's disease/psychosis 11/01/16: Patient has not yet exhibited any problematic behavior on the unit. I suspect environmental change has been beneficial for patient's behavior and impulse control is such that he can maintain his behavior with caregivers other than his ; will continue to monitor. 11/02/16: Still awaiting records from [facility]; will discuss starting Ativan 0.5mg PO q HS with . Qualifiers: Qualified Codes: F02.81 - Dementia in other diseases classified elsewhere with behavioral disturbance; G30.8 - Other Alzheimer's disease (2) Osteoarthritis (3) Hypertriglyceridemia (4) BPH (benign prostatic hyperplasia) Qualifiers: Qualified Codes: N40.0 - Benign prostatic hyperplasia without lower urinary tract symptoms (5) Overweight (BMI 25.0-29.9) CAMILLE PAK MD Nov 02, 2016 10:15
--- NOTE | 2016-11-02 16:14 | NUR ---
Status Pt ate well at breakfast and lunch. Pt has been appropriate with cares and cares given. Pt wanted to talk to this afternoon after lunch; had an appropriate phone call. Sat in room for a short while with chair alarm on. Pt has been appropriate with all interactions with staff and peers; is quite but friendly. Pt is currently in dayroom with and staff present, will continue to monitor.
[2016-11-02 16:19] VITALS: BP 130/71; PULSE 64; RESP 16; TEMP 98.2; O2SAT 95
--- NOTE | 2016-11-02 18:59 | NUR ---
Summary Pt ate well at all meals, has been appropriate with all peers and staff. Pt has been pleasant with no agitation noted. Pt visited with his family during dinner time. Pt has had no prns this shift.
[2016-11-02 20:00] VITALS: RESP 18
[2016-11-02] MEDS: TAMSULOSIN 0.4 MG CAPSULE PO SCH (20:14)
[2016-11-02] MEDS: DONEPEZIL 10 MG TABLET PO SCH (20:14)
[2016-11-02 20:32] VITALS: BP 112/69; PULSE 62; RESP 18; TEMP 98
--- NOTE | 2016-11-02 22:00 | NUR ---
bedtime Pt went to sleep at 2200, pt is in bed with 2 bed rails up and bed alarm on.
--- NOTE | 2016-11-03 01:09 | NUR ---
Chart Check 24 hour chart check completed
--- NOTE | 2016-11-03 06:45 | NUR ---
shift summary Pt is alert and oriented to person, pt guarded but cooperative with assessment, meds, vitals, pt took a shower last night without problem, pt linens changed. Pt up once during night, cooperative with cares. Pt had no hallucinations overnight. Pt is in bed with 2 bed rails up and bed alarm on.
[2016-11-03 08:40] VITALS: BP 138/74; PULSE 58; RESP 16; TEMP 97.4; O2SAT 94
[2016-11-03] MEDS: ARIPIPRAZOLE 10 MG TABLET PO SCH (09:20)
[2016-11-03] MEDS: VORTIOXETINE 10 MG TABLET PO SCH (09:20)
[2016-11-03] MEDS: ASPIRIN *EC* 81mg TABLET PO SCH (09:20)
[2016-11-03] MEDS: REFRESH CLASSIC Eye Drops 0.4ml Dropperette BOTH EYES PRN ×2 (09:20→16:06)
[2016-11-03] MEDS: MEMANTINE 5 MG TABLET PO SCH ×2 (09:20→20:04)
[2016-11-03] MEDS: MECLIZINE 12.5 MG TABLET PO SCH (09:20)
[2016-11-03] MEDS: [UNRECOGNIZED DRUG - OTHER] PO SCH (09:20)
--- NOTE | 2016-11-03 12:56 | GENPN ---
[facility] Subjective Date DATE: 11/03/16 TIME: 06:45 Subjective/Severity of Illness Medications Current Medications Medications (Trade) Dose Ordered Sig/[place] Start Time Stop Time Status Last Admin Dose Admin Miscellaneous Medication (May use PRN orders) 1 PRN PRN 10/30/16 21:45 Haloperidol (Haldol) 0.5 mg Q6H PRN 10/30/16 21:45 Lorazepam (Ativan) 0.5 mg Q6H PRN 10/30/16 21:45 Lorazepam (Ativan) 0.5 mg Q6H PRN 10/30/16 21:45 Haloperidol Lactate (Haldol 5 Mg/ml Inj) 0.5 mg Q6H PRN 10/30/16 21:45 Bisacodyl (Dulcolax) 10 mg DAILY PRN 10/30/16 21:45 Aripiprazole (Abilify) 10 mg DAILY 10/31/16 09:00 11/02/16 09:17 10 MG Aspirin (Ecotrin) 81 mg DAILY 10/31/16 09:00 11/02/16 09:17 81 MG Bupropion HCl (Wellbutrin Ir) 200 mg DAILY 10/31/16 09:00 11/02/16 09:17 200 MG Donepezil HCl (Aricept) 10 mg DAILY 10/31/16 09:00 10/31/16 17:40 DC 10/31/16 10:41 10 MG Meclizine HCl (Antivert 12.5 Mg) 12.5 mg DAILY 10/31/16 09:00 11/02/16 09:18 12.5 MG Tamsulosin HCl (FLOMAX 0.4 mg) 0.4 mg HS 10/31/16 21:00 11/02/16 20:14 0.4 MG Vortioxetine (Trintellix) 10 mg DAILY 10/31/16 09:00 11/02/16 09:17 10 MG Non-Formulary Medication 28 mg DAILY 10/31/16 09:00 10/31/16 09:00 DC Memantine (Namenda) 15 mg BID 10/31/16 09:00 11/02/16 20:14 15 MG Bisacodyl (Dulcolax) 10 mg DAILY PRN 10/31/16 08:15 10/31/16 08:15 10 MG Artificial Tears (Refresh Classic Drops) 1 drop PRN PRN 10/31/16 17:15 Donepezil HCl (Aricept) 10 mg HS 11/01/16 21:00 11/02/16 20:14 10 MG Subjective Patient seen and chart reviewed. 71 year old male with dementia who was admitted from home where he lived with his . He was asleep upon my visit today. He had reportedly become combative with her and was refusing cares. Has had some falls. Confused and oriented to self only. He has been compliant w meds. RN reports he has been pleasant and cooperative w them here. Slept thru the night. Appetite good. Ambulates with assistance, some weakness/ unsteadiness. Time of Service: :30 Start Time: :30 Stop Time: 07:45 Care >50% of this visit spent in counseling/coordination care. Generations Exam Vitals Vital Signs Date Time Temp Pulse Resp B/P Pulse Ox O2 Delivery O2 Flow Rate FiO2 11/02/16 20:32 98.0 62 18 112/69 Room Air 11/02/16 16:19 95 Physical examination performed by the hospitalist. Height (Feet): 5 Height (Inches): 8.00 Mental Status Exam Muscle Strength/Tone: Weak Dressing: Casual Grooming: Fair Attitude: Guarded Volume: Soft Orientation: Disoriented to time, Disoriented to place, Disoriented to situation, Oriented to person Mood: Anxious Thought Organization: Disorganized, Confused Attention Span/Concentration: Distractable Memory: Poor-recent Suicidal Ideation: None Homicidal Ideation: None Insight: Poor Judgment: Poor Impulse Control: Poor Assessment and Plan (1) Dementia with behavioral disturbance Assessment: r/o Lewy body dementia, r/o Parkinson's disease/psychosis 11/01/16: Patient has not yet exhibited any problematic behavior on the unit. I suspect environmental change has been beneficial for patient's behavior and impulse control is such that he can maintain his behavior with caregivers other than his ; will continue to monitor. 11/02/16: Still awaiting records from [place]; will discuss starting Ativan 0.5mg PO q HS with . 11/03/16: RN reports behaviors remain improved here. Will monitor and hold off on any further meds for now, particularly given his unsteadiness. Qualifiers: Qualified Codes: F02.81 - Dementia in other diseases classified elsewhere with behavioral disturbance; G30.8 - Other Alzheimer's disease (2) Osteoarthritis (3) Hypertriglyceridemia (4) BPH (benign prostatic hyperplasia) Qualifiers: Qualified Codes: N40.0 - Benign prostatic hyperplasia without lower urinary tract symptoms (5) Overweight (BMI 25.0-29.9) RICHAR MONSIVAIS MD Nov 03, 2016 06:48
--- NOTE | 2016-11-03 13:58 | NUR ---
SUMMARY PATIENT HAS BEEN PLEASANT AND COOPERATIVE THIS AM/AFTERNOON. HE TOOK ALL HIS AM MEDICATIONS WHOLE WITHOUT A PROBLEM. HE PARTICIPATED IN GROUP ACTIVITY THIS AFTERNOON BEFORE LUNCH. HIS APPETITE IS GOOD. PATIENT WAS COOPERATIVE WITH CARES AND REQUESTED TO DO MUCH HE COULD ON HIS OWN. HE HAS NOT HAD ANY AGGRESSIVE BEHAVIORS WITH STAFF TODAY. HE REQUESTED TO AMBULATE TO HIS ROOM WITH ASSISTANCE. HIS GAIT IS STEADY FOR A WHILE BUT THEN HIS LOWER EXTREMITIES GET WEAK AND REQUIRES THE WHEELCHAIR AGAIN. PATIENT TOOK A SHORT NAP THIS AFTERNOON.
--- NOTE | 2016-11-03 15:00 | NUR ---
Care Assumed Report from [facility]. Pt sitting in room with 3 family members. Pt. know name but not date, time or place. Thinks it is 2069. Complains of dry burning sensation in eyes, and some redness noted and pt. received prn eye gtts. Has calm affect and sits quietly and cooperative with BP taken.
[2016-11-03 16:00] VITALS: BP 104/65; PULSE 76; RESP 18; TEMP 98; O2SAT 96
--- NOTE | 2016-11-03 18:30 | NUR ---
Summary of shift and Sleep Time Pt. had 1 hr. of sleep time during the shift and has family visiting with him in group room and visited while he ate. After meal, pt watching card game with family. Pt is calm but not engaged in game. Pt. did well with walking with nurse pushing w/c and needs prompting for direction.
[2016-11-03] MEDS: TAMSULOSIN 0.4 MG CAPSULE PO SCH (20:04)
[2016-11-03] MEDS: DONEPEZIL 10 MG TABLET PO SCH (20:04)
[2016-11-03 20:15] VITALS: BP 133/83; PULSE 66; RESP 16; TEMP 98.7; O2SAT 98
--- NOTE | 2016-11-03 23:55 | NUR ---
Status Assumed care at 1915 and assessment completed at 2014. Patient is in conference room with a large number of family members this evening, until they depart at 1999. He exhibits a quiet/calm/reserved affect with family members. Pleasant, cooperative, and conversational with staff. CONRADO to person and place (states that the year is "..2071"). VS are stable. He denies any pain or discomfort. He ambulates with an unsteady gait - is accepting/appreciative of staff assistance when provided. Readily compliant with medications. Mostly independent with cares (cueing provided and he is accepting of staff assistance). No aggressive behaviors or hallucinations are noted. Thought process is mostly logical - some trailing/random thoughts are noted and he needs cueing at times for direction and to complete activities. He comments that he "never thought that getting old would be like this." In a reflective mood at and questions whether his "current state" is "a punishment for something I did wrong." Listening presence and emotional support provided; his response to this consists of positive comments regarding relying on his maricel and being thankful for family/mormonism support.
--- NOTE | 2016-11-04 01:07 | NUR ---
Bedtime Patient was in bed at 2130 and asleep by 2200. Per day shift documentation, he slept 1 hour today. Sleeping quietly at the current time. Bed alarm is on and side rails are up x2.
--- NOTE | 2016-11-04 01:57 | NUR ---
Chart Check 24 hour chart check completed
--- NOTE | 2016-11-04 05:19 | NUR ---
Summary Patient has been CONRADO to person/place this shift. Mood is quiet but pleasant/polite and he is conversational with staff, using appropriate eye contact. Refuses to use c-pap overnight, stating that he doesn't need it. No c/o pain/discomfort or anxiety. Readily compliant with medications. Allows staff to assist with cares/cueing as needed - states appreciation. He ambulates with an unsteady gait and is continent of urine last evening and continent/incontinent of urine this morning. No aggressive behavior is noted. No hallucinations are noted or reported. Resting quietly at the current time. Bed alarm is on and side rails are up x2.
--- NOTE | 2016-11-04 09:00 | NUR ---
Pt Status Pt awake at 0900 and reported that to sleep at 2200 last p.m. Cooperative with care and is very private, nurse set clothes out and he dressed self and did well. Continued oriented to person and knows he is in [place] but thinks it is 2003. No verbal or physical aggression noted.
[2016-11-04] MEDS: ARIPIPRAZOLE 10 MG TABLET PO SCH (09:20)
[2016-11-04] MEDS: VORTIOXETINE 10 MG TABLET PO SCH (09:21)
[2016-11-04] MEDS: [UNRECOGNIZED DRUG - OTHER] PO SCH (09:21)
[2016-11-04] MEDS: MEMANTINE 5 MG TABLET PO SCH ×2 (09:21→20:33)
[2016-11-04] MEDS: ASPIRIN *EC* 81mg TABLET PO SCH (09:21)
[2016-11-04] MEDS: MECLIZINE 12.5 MG TABLET PO SCH (09:21)
[2016-11-04 09:48] VITALS: BP 89/66; PULSE 86; RESP 18; TEMP 97.3; O2SAT 96
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
[2016-11-04 16:00] VITALS: BP 145/76; PULSE 66; RESP 16; TEMP 98.3; O2SAT 97
--- NOTE | 2016-11-04 16:02 | PNPDOC ---
Subjective Date DATE: 11/04/16 TIME: 15:56 Subjective Mr. Jones is seen today in dining area. Sitting quietly. Appears to be sad- reports that he is tired of being here. Conjunctival matting right eye- RN reports he is getting eye drops. He denies any pain. Is pleasant, withdrawn and quiet. Chart is reviewed. Objective Vital Signs Vital signs Vital Signs Date Time Temp Pulse Resp B/P Pulse Ox O2 Delivery O2 Flow Rate FiO2 11/04/16 09:48 97.3 86 18 89/66 96 Room Air Height (Feet): 5 Height (Inches): 8.00 Weight (Kilograms): 87.130 General General Appearance: Alert, Confused, Cooperative, No Acute Distress Eyes (Brief) Eyes: FOUND: other (Both eyes reddened, conjuctival matting. ) Neck (Brief) Neck: FOUND: midline, NOT FOUND: JVD, nuchal rigidity, spasm Respiratory (Brief) Respiratory: FOUND: clear all rehman, equal bilaterally, symmetrical, NOT FOUND : rales, wheezes Cardiovascular (Brief) Cardiac: FOUND: regular rate, regular rhythm, NOT FOUND: murmur, pedal edema Abdomen (Brief) Abdominal: FOUND: BS normo active x4, soft, NOT FOUND: distended, tender Extremities (Brief) Extremity : Extremity Finding: NOT FOUND: edema Psychiatric (Brief) Psychiatric: FOUND: alert, attentive, NOT FOUND: oriented Assessment & Plan Problems: (1) Dementia with behavioral disturbance Status: Acute Qualifiers: Dementia type: Alzheimer's disease Alzheimer's disease onset: unspecified onset Qualified Codes: F02.81 - Dementia in other diseases classified elsewhere with behavioral disturbance; G30.8 - Other Alzheimer's disease (2) Cognitive and neurobehavioral dysfunction Status: Acute (3) Hypertriglyceridemia Status: Chronic (4) Anxiety Status: Chronic (5) Depression Status: Chronic (6) Osteoarthritis Status: Chronic (7) BPH (benign prostatic hyperplasia) Status: Chronic Qualifiers: Prostatic enlargement morphology: unspecified morphology Lower urinary tract symptom presence: presence of symptoms unspecified Qualified Codes: N40.0 - Benign prostatic hyperplasia without lower urinary tract symptoms (8) Overweight (BMI 25.0-29.9) Status: Chronic (9) Bilateral conjunctivitis Status: Acute Qualifiers: Conjunctivitis type: unspecified Qualified Codes: H10.9 - Unspecified conjunctivitis Plan/Intensity of Service 11/04/16- Pt is doing well medically. BP is a little bit low this afternoon, but overall has been ok. Bilateral conjunctivitis- appears infectious- will add Gent eye drops. Has Refresh drops ordered. Hx of frequent urination/nocturia noted. Continue Flomax. Labs are fairly unremarkable. Continues supportive care. Pt. may need placement. Code Status Do Not Resuscitate Hospital Course Summary Disclaimer The hospital course summary below is not to be considered part of the above Progress Note. Hospital Course Summary Agree with admission to [facility] under the care of Dr. Jimenez for further psychiatric evaluation and treatment. All admission laboratory studies are reviewed. Overall, patient appears to be medically stable. Will monitor blood pressure routinely Continue routine home medications including ASA, meclizine and Flomax Dulcolax suppository as needed for bowel motivation Encourage patient to participate in unit activities and provide a safe environment Appreciate medical consultation for management of his existing comorbidities. The hospitalist services will continue to follow patient medically manage him during his stay in [facility] unit. At time of discharge his medical care will return to his primary care provider, Dr. Sierra 11/04/16- Pt is doing well medically. BP is a little bit low this afternoon, but overall has been ok. Bilateral conjunctivitis- appears infectious- will add Gent eye drops. Has Refresh drops ordered. Hx of frequent urination/nocturia noted. Continue Flomax. Labs are fairly unremarkable. Continues supportive care. Pt. may need placement. RENEE CROW APRN Nov 04, 2016 16:00
[2016-11-04] MEDS: REFRESH CLASSIC Eye Drops 0.4ml Dropperette BOTH EYES PRN (16:18)
[2016-11-04] MEDS: EYE BOTH EYES SCH ×2 (17:16→20:33)
[2016-11-04] MEDS: GENTAMICIN 0.3% BOTH EYES SCH ×2 (17:16→20:33)
--- NOTE | 2016-11-04 18:15 | NUR ---
Shift Summary and Sleep time Pt had NO sleep time since up this a.m. Pt has had many family members visit today and pt has pleasant affect but very quiet and does not verbalize except short responses. No verbal or physical aggression. Is polite and thanks nurse for eye drops and states eyes feel better despite redness continued. Good appetite and fluids encouraged.
[2016-11-04 20:25] VITALS: BP 113/67; PULSE 64; RESP 15; TEMP 98.1; O2SAT 95
[2016-11-04] MEDS: DONEPEZIL 10 MG TABLET PO SCH (20:32)
[2016-11-04] MEDS: TAMSULOSIN 0.4 MG CAPSULE PO SCH (20:32)
--- NOTE | 2016-11-05 02:09 | NUR ---
Status Assumed patient care at 1915 and assessment completed at 2024. Patient is in his room this evening, reads in recliner. Denies any pain or discomfort; reports improving irritation to bilateral eyes (slight redness remains but no drainage is noted). VS are stable. 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 Thought process is intact/logical although he is confused as to the year. Eye contact is appropriate. He allows staff to assist him with his shower - appreciative/polite behavior. Prune juice given per his request (documented BM 4-22). Readily compliant with medications. Ambulates with an occasionally unsteady gait.
--- NOTE | 2016-11-05 02:20 | NUR ---
Bedtime Patient was in bed by 2099 and asleep by 2144. He was awake all of dayshift. Resting quietly at the current time. Bed alarm is on and side rails are up x2.
--- NOTE | 2016-11-05 02:51 | NUR ---
Chart Check 24 hour chart check completed
--- NOTE | 2016-11-05 06:23 | NUR ---
Summary Patient has been in a pleasant/cooperative mood this shift; isolates in room (reads) but initiates conversation with staff, makes appropriate eye contact, and smiles upon occasion. CONRADO to person and place. Readily compliant with medications. Independent with cares as able; is accepting/appreciative of staff assistance when needed. No aggressive behaviors are noted. Is up x1 overnight to toilet, otherwise he appears to have slept well.
[2016-11-05] MEDS: MECLIZINE 12.5 MG TABLET PO SCH (08:49)
[2016-11-05] MEDS: ASPIRIN *EC* 81mg TABLET PO SCH (08:49)
[2016-11-05] MEDS: ARIPIPRAZOLE 10 MG TABLET PO SCH (08:49)
[2016-11-05] MEDS: MEMANTINE 5 MG TABLET PO SCH ×2 (08:50→20:08)
[2016-11-05] MEDS: [UNRECOGNIZED DRUG - OTHER] PO SCH (08:50)
[2016-11-05] MEDS: VORTIOXETINE 10 MG TABLET PO SCH (09:00)
--- NOTE | 2016-11-05 09:00 | NUR ---
SLEEP 9.50 Hours Pt went to bed last night at 2100 and awoke this morning at 0830. Pt slept a total of 9.5 hours as documented on 15 minute observation forms.
[2016-11-05 09:29] VITALS: BP 108/65; PULSE 65; RESP 18; TEMP 98; O2SAT 93
[2016-11-05] MEDS: GENTAMICIN 0.3% BOTH EYES SCH ×4 (10:33→20:08)
[2016-11-05] MEDS: EYE BOTH EYES SCH ×4 (10:33→20:08)
--- NOTE | 2016-11-05 15:10 | NUR ---
STATUS Pt was cooperative with assessment, cares and medications. Pt woke happy in affect and was able to perform all ADL with minimal assistance. Pt has had no behaviors so far this shift. Pt has been in a good mood most of the day and is able to make his needs known. Pt eats most of his meals. Pt is currently in the dining room with staff present.
--- NOTE | 2016-11-05 15:34 | NUR ---
[employer]--FAMILY CONTACT [facility] met with pt's son, Alfred Jones. He and his brother, Jacob, had discussed how they were going to talk with the patient about his discharge [place] the [place] [facility]. They were afraid the patient would get angry at his . He asked this SW about talking with the patient about discharge plans. This SW agreed to visit with the patient and to let him know that it was Dr. Jimenez's recommendation that pt. discharge [place] [facility] while the continues to have respite and get stronger herself. [facility] met 1:1 with pt. regarding discharge plans. Explained that Dr. Jimenez was projecting discharge in the next few days and that she was recommending that the patient discharge to a [place] [facility] [place] for continued care to allow time for the patient's to have respite and to gain some strength herself. Advised pt. that family was asking that pt. be considered for [facility] in [place]. Pt. agreed he and his needed to talk about their future plans; he knew his does not [place] the country by herself. He admitted that they had agreed they talk about it in the future but he never dreamed the future would arrive so quickly. He stated he would like to be able to talk it over with his family, whom he sees as being supportive. This SW encouraged pt. to view his stay at [facility] as an opportunity to take control of the future for both he and his . The pt's arrived. She was updated on potential discharge within the next few days. She is supportive of pt. going to [facility].
--- NOTE | 2016-11-05 15:35 | NUR ---
ELIECER GONZÁLES SPOKE WITH [facility] FROM [facility] [place] THEY RECEIVE FAX THIS AM. THEY WILL CONTACT ELIECER IN AM REGARDING ACCEPTANCE.
[2016-11-05 16:36] VITALS: BP 111/67; PULSE 63; RESP 16; TEMP 98.1; O2SAT 94
--- NOTE | 2016-11-05 17:29 | GENPN ---
[facility] Subjective Date DATE: 11/05/16 TIME: 15:08 Subjective/Severity of Illness Medications Current Medications Medications (Trade) Dose Ordered Sig/[place] Start Time Stop Time Status Last Admin Dose Admin Miscellaneous Medication (May use PRN orders) 1 PRN PRN 10/30/16 21:45 Haloperidol (Haldol) 0.5 mg Q6H PRN 10/30/16 21:45 Lorazepam (Ativan) 0.5 mg Q6H PRN 10/30/16 21:45 Lorazepam (Ativan) 0.5 mg Q6H PRN 10/30/16 21:45 Haloperidol Lactate (Haldol 5 Mg/ml Inj) 0.5 mg Q6H PRN 10/30/16 21:45 Bisacodyl (Dulcolax) 10 mg DAILY PRN 10/30/16 21:45 Aripiprazole (Abilify) 10 mg DAILY 10/31/16 09:00 11/05/16 08:49 10 MG Aspirin (Ecotrin) 81 mg DAILY 10/31/16 09:00 11/05/16 08:49 81 MG Bupropion HCl (Wellbutrin Ir) 200 mg DAILY 10/31/16 09:00 11/05/16 08:50 200 MG Donepezil HCl (Aricept) 10 mg DAILY 10/31/16 09:00 10/31/16 17:40 DC 10/31/16 10:41 10 MG Meclizine HCl (Antivert 12.5 Mg) 12.5 mg DAILY 10/31/16 09:00 11/05/16 08:49 12.5 MG Tamsulosin HCl (FLOMAX 0.4 mg) 0.4 mg HS 10/31/16 21:00 11/04/16 20:32 0.4 MG Vortioxetine (Trintellix) 10 mg DAILY 10/31/16 09:00 11/05/16 09:00 10 MG Non-Formulary Medication 28 mg DAILY 10/31/16 09:00 10/31/16 09:00 DC Memantine (Namenda) 15 mg BID 10/31/16 09:00 11/05/16 08:50 15 MG Bisacodyl (Dulcolax) 10 mg DAILY PRN 10/31/16 08:15 10/31/16 08:15 10 MG Artificial Tears (Refresh Classic Drops) 1 drop PRN PRN 10/31/16 17:15 11/04/16 16:18 1 DROP Donepezil HCl (Aricept) 10 mg HS 11/01/16 21:00 11/04/16 20:32 10 MG Gentamicin Sulfate (Garamycin 0.3% Eye Drops) 2 drop QID 11/04/16 17:00 11/05/16 10:33 2 DROP Subjective Patient seen and chart reviewed. Case discussed with treatment team. Patient is pleasant and cooperative, though confused with poverty of thought through interview. His son, [id number] and 3 grandchildren are visiting him on the unit and he seems to really enjoy this. Discussed patient's progress and treatment plan with son; all questions answered to his satisfaction. He did report visuospatial difficulties to SW - and this would be worth a visit to the eye doctor as an outpatient basis though it is more likely related to his dementia. Patient denies SI, HI, AVH, or adverse side effects related to medications. Per staff, patient has been calm and cooperative, without behavioral difficulties on the unit. He has tolerated cares from staff of both genders well. Patient slept 9.5 hours overnight. Appetite is good. VSS. No psychotropic PRNs required in the past 24 hours. Plan is to discharge to [place] per family's wishes. Time of Service: 06:15 Start Time: 11:00 Stop Time: 11:20 Care >50% of this visit spent in counseling/coordination care. [facility] Exam Vitals Vital Signs Date Time Temp Pulse Resp B/P Pulse Ox O2 Delivery O2 Flow Rate FiO2 11/05/16 09:29 98.0 65 18 108/65 93 Room Air Physical examination performed by the hospitalist. Height (Feet): 5 Height (Inches): 8.00 Mental Status Exam Muscle Strength/Tone: Rigid Dressing: Casual Grooming: Good Attitude: Cooperative Motor Activity: Retardation, Tremors Eye Contact: Fair Speech: Slowed Volume: Soft Rhythm: Appropriate Rhythm Sensory: Alert Orientation: Disoriented to time, Disoriented to place, Disoriented to situation, Oriented to person Mood: Neutral Affect: Stable Rate of Thoughts: Delayed Thought Organization: Confused Associations: Illogical Abstract Reasoning: Impaired, concrete Thought Content: Normal Perception/Psychotic: Hx psychosis,not current (reported by , not observed on unit) Attention Span/Concentration: Short Span Language: Naming Impaired Fund of Knowledge: Poor fund of knowledge Memory: Poor-immediate, Poor-recent Suicidal Ideation: Denies Homicidal Ideation: Denies Insight: Limited Judgment: Limited Impulse Control: Good Assessment and Plan (1) Dementia with behavioral disturbance Assessment: r/o Lewy body dementia, r/o Parkinson's disease/psychosis 11/01/16: Patient has not yet exhibited any problematic behavior on the unit. I suspect environmental change has been beneficial for patient's behavior and impulse control is such that he can maintain his behavior with caregivers other than his ; will continue to monitor. 11/02/16: Still awaiting records from [facility]; will discuss starting Ativan 0.5mg PO q HS with . 11/03/16: RN reports behaviors remain improved here. Will monitor and hold off on any further meds for now, particularly given his unsteadiness. 11/04/16: Continues to do fairly well in this environment. Working on placement to [place] upon DC as is no longer able to care for him at home. 11/05/16: Patient continues to do well - I believe that environmental change will be beneficial in controlling behaviors without further increase of medication. Family is understanding of this and in agreement with plan to discharge to [facility] tomorrow. Qualifiers: Qualified Codes: F02.81 - Dementia in other diseases classified elsewhere with behavioral disturbance; G30.8 - Other Alzheimer's disease (2) Osteoarthritis (3) Hypertriglyceridemia (4) BPH (benign prostatic hyperplasia) Qualifiers: Qualified Codes: N40.0 - Benign prostatic hyperplasia without lower urinary tract symptoms (5) Overweight (BMI 25.0-29.9) CAMILLE PAK MD Nov 05, 2016 15:08
--- NOTE | 2016-11-05 18:37 | NUR ---
Summary Pt had a really good day today and had no verbal or physical aggression. Pt had no PRN medications this shift and ate all of his meals. Pt requires only stand by assist with ambulation and is able to perform most cares. Pt has had a continent and incontinent void today. Pt is currently resting in his bed.
[2016-11-05 20:00] VITALS: RESP 16
[2016-11-05] MEDS: DONEPEZIL 10 MG TABLET PO SCH (20:08)
[2016-11-05] MEDS: TAMSULOSIN 0.4 MG CAPSULE PO SCH (20:08)
[2016-11-05 21:06] VITALS: BP 119/67; PULSE 65; RESP 16; TEMP 98.6; O2SAT 95
--- NOTE | 2016-11-05 21:45 | NUR ---
bedtime Pt went to sleep at 21:45, pt is in bed with 2 bed rails up and bed alarm on.
--- NOTE | 2016-11-06 00:26 | NUR ---
patient status Pt is alert and oriented x2, pt is up with standby assist with walker or wheelchair, pt is sitting in recliner in bed room at the start of shift. Pt cooperative with assessment, vitals, and meds, pt cooperative with hs cares, pt went to bed at 21:45, pt had no behaviors or hallucinations this shift, pt is sleeping in bed with 2 bed rails up and bed alarm on.
--- NOTE | 2016-11-06 07:00 | NUR ---
shift summary Pt is alert and oriented x1, pt cooperative with assessment, meds, vitals, pt slept well. Pt went to bed at 21:45. Pt up a couple of times during the night and then went back to bed. Pt had no aggression or hallucinations overnight. Pt is in bed with 2 bed rails up and bed alarm on.
[2016-11-06 08:00] VITALS: BP 122/74; PULSE 67; RESP 16; TEMP 97.8; O2SAT 94
[2016-11-06] MEDS: ARIPIPRAZOLE 10 MG TABLET PO SCH (08:15)
[2016-11-06] MEDS: MECLIZINE 12.5 MG TABLET PO SCH (08:15)
[2016-11-06] MEDS: VORTIOXETINE 10 MG TABLET PO SCH (08:15)
[2016-11-06] MEDS: GENTAMICIN 0.3% BOTH EYES SCH ×4 (08:15→21:05)
[2016-11-06] MEDS: [UNRECOGNIZED DRUG - OTHER] PO SCH (08:15)
[2016-11-06] MEDS: EYE BOTH EYES SCH ×4 (08:15→21:05)
[2016-11-06] MEDS: ASPIRIN *EC* 81mg TABLET PO SCH (08:15)
[2016-11-06] MEDS: MEMANTINE 5 MG TABLET PO SCH ×2 (08:15→21:05)
--- NOTE | 2016-11-06 10:10 | NUR ---
ELIECER GONZÁLES LEFT [facility] AT [facility] REGARDING D/C FOR PT. CM AWAITING A RETURN CALL.
[2016-11-06] MEDS ORDERED: POLY30DR BOTH EYES (10:22)
[2016-11-06] MEDS ORDERED: GENT5DRO6 BOTH EYES (10:22)
--- NOTE | 2016-11-06 10:24 | PNPDOC ---
LARISSA LEDESMA SHANNA 11/06/16 0924: Subjective Date DATE: 11/06/16 TIME: 09:24 Subjective Mr. Jones was seen while eating breakfast. He was pleasant and cooperative. He denied any complaints. Nursing staff report that he has been cooperative, and has not had any behaviors or hallucinations. Likely discharge tomorrow. Objective Vital Signs Vital signs Vital Signs Date Time Temp Pulse Resp B/P Pulse Ox O2 Delivery O2 Flow Rate FiO2 11/06/16 08:00 97.8 67 16 122/74 94 Room Air Height (Feet): 5 Height (Inches): 8.00 Weight (Kilograms): 87.130 General General Appearance: Alert, Orientated x 2, No Acute Distress Eyes (Brief) Eyes: FOUND: PERRL, other (no drainage), NOT FOUND: scleral icterus ENMT (Brief) ENMT: FOUND: mucosa moist, NOT FOUND: pharnyx erythema Respiratory (Brief) Respiratory: FOUND: clear all rehman, equal bilaterally Cardiovascular (Brief) Cardiac: FOUND: regular rate, regular rhythm Abdomen (Brief) Abdominal: FOUND: BS normo active x4, soft, NOT FOUND: distended, tender Extremities (Brief) Extremity : Side: Bilateral Extremity: leg Extremity Finding: NOT FOUND: edema Musculoskeletal (Brief) Musculoskeletal: NOT FOUND: tenderness Integumentary (Brief) Integumentary: FOUND: dry, pink, warm Psychiatric (Brief) Psychiatric: FOUND: alert, attentive, normal affect, oriented Assessment & Plan Problems: (1) Dementia with behavioral disturbance Status: Acute Qualifiers: Dementia type: Alzheimer's disease Alzheimer's disease onset: unspecified onset Qualified Codes: F02.81 - Dementia in other diseases classified elsewhere with behavioral disturbance; G30.8 - Other Alzheimer's disease (2) Cognitive and neurobehavioral dysfunction Status: Acute (3) Hypertriglyceridemia Status: Chronic (4) Anxiety Status: Chronic (5) Depression Status: Chronic (6) Osteoarthritis Status: Chronic (7) BPH (benign prostatic hyperplasia) Status: Chronic Qualifiers: Prostatic enlargement morphology: unspecified morphology Lower urinary tract symptom presence: presence of symptoms unspecified Qualified Codes: N40.0 - Benign prostatic hyperplasia without lower urinary tract symptoms (8) Overweight (BMI 25.0-29.9) Status: Chronic (9) Bilateral conjunctivitis Status: Acute Qualifiers: Conjunctivitis type: unspecified Qualified Codes: H10.9 - Unspecified conjunctivitis Plan/Intensity of Service Had a low blood pressure reading on 11/04/16, but since then it has improved. Bilateral conjunctivitis - improving. Continue eyedrops to complete a week course (through 11/10) Last BM on 11/03/16 - give one-time dose of MOM. Psychiatric progress notes reviewed. Medically stable for discharge, which is planned for tomorrow. Code Status Do Not Resuscitate Hospital Course Summary Disclaimer The hospital course summary below is not to be considered part of the above Progress Note. Hospital Course Summary Agree with admission to [facility] under the care of Dr. Jimenez for further psychiatric evaluation and treatment. All admission laboratory studies are reviewed. Overall, patient appears to be medically stable. Will monitor blood pressure routinely Continue routine home medications including ASA, meclizine and Flomax Dulcolax suppository as needed for bowel motivation Encourage patient to participate in unit activities and provide a safe environment Appreciate medical consultation for management of his existing comorbidities. The hospitalist services will continue to follow patient medically manage him during his stay in [facility]. At time of discharge his medical care will return to his primary care provider, Dr. Sierra 11/04/16- Pt is doing well medically. BP is a little bit low this afternoon, but overall has been ok. Bilateral conjunctivitis- appears infectious- will add Gent eye drops. Has Refresh drops ordered. Hx of frequent urination/nocturia noted. Continue Flomax. Labs are fairly unremarkable. Continues supportive care. Pt. may need placement. 11/06/16 Had a low blood pressure reading on 11/04/16, but since then it has improved. Bilateral conjunctivitis - improving. Continue eyedrops to complete a week course (through 11/10) Last BM on 11/03/16 - give one-time dose of MOM. Psychiatric progress notes reviewed. Medically stable for discharge, which is planned for tomorrow. CASSANDRA VICENTE MD 11/06/16 6546: Assessment & Plan Assessment 11/06/2016-I reviewed this chart, the patient history, and the WARD SECRETARY's/PA's documented findings as above. We discussed and formulated the assessment and plan as above with the additions below.-Dr. Vicente Patient was seen after dinnertime. He had eaten all of his dinner. He states his eyes are feeling better. He complains of low ambition but otherwise no complaints. On exam his lungs are clear and heart reveals a regular rate and rhythm without murmur. Abdomen is soft and nontender. Extremities are free of significant edema. Continue with current treatment plan. Labs were reviewed and essentially normal. LARISSA LEDESMA APRN Nov 06, 2016 09:24 CASSANDRA VICENTE MD Nov 06, 2016 17:56
[2016-11-06] MEDS ORDERED: MILK OF MAGNESIA 30 ML SUSP PO ONE (10:30)
--- NOTE | 2016-11-06 13:00 | NUR ---
status pt woke this am at 0745 for a total of 8.75 hrs of sleep. pleasant and compliant with medication. alert and oriented to person and place. eats well for all meals. no hallucinations or aggressive behavior noted so far this shift.
--- NOTE | 2016-11-06 13:45 | NUR ---
CM PT HAS BEEN ACCEPTED TO [facility] FOR TOMORROW AND CM AWAITING PICK TIME.
--- NOTE | 2016-11-06 14:01 | GENPN ---
[facility] Subjective Date DATE: 11/06/16 TIME: 08:41 Subjective/Severity of Illness Medications Current Medications Medications (Trade) Dose Ordered Sig/[place] Start Time Stop Time Status Last Admin Dose Admin Miscellaneous Medication (May use PRN orders) 1 PRN PRN 10/30/16 21:45 Haloperidol (Haldol) 0.5 mg Q6H PRN 10/30/16 21:45 Lorazepam (Ativan) 0.5 mg Q6H PRN 10/30/16 21:45 Lorazepam (Ativan) 0.5 mg Q6H PRN 10/30/16 21:45 Haloperidol Lactate (Haldol 5 Mg/ml Inj) 0.5 mg Q6H PRN 10/30/16 21:45 Bisacodyl (Dulcolax) 10 mg DAILY PRN 10/30/16 21:45 Aripiprazole (Abilify) 10 mg DAILY 10/31/16 09:00 11/06/16 08:15 10 MG Aspirin (Ecotrin) 81 mg DAILY 10/31/16 09:00 11/06/16 08:15 81 MG Bupropion HCl (Wellbutrin Ir) 200 mg DAILY 10/31/16 09:00 11/06/16 08:15 200 MG Donepezil HCl (Aricept) 10 mg DAILY 10/31/16 09:00 10/31/16 17:40 DC 10/31/16 10:41 10 MG Meclizine HCl (Antivert 12.5 Mg) 12.5 mg DAILY 10/31/16 09:00 11/06/16 08:15 12.5 MG Tamsulosin HCl (FLOMAX 0.4 mg) 0.4 mg HS 10/31/16 21:00 11/05/16 20:08 0.4 MG Vortioxetine (Trintellix) 10 mg DAILY 10/31/16 09:00 11/06/16 08:15 10 MG Non-Formulary Medication 28 mg DAILY 10/31/16 09:00 10/31/16 09:00 DC Memantine (Namenda) 15 mg BID 10/31/16 09:00 11/06/16 08:15 15 MG Bisacodyl (Dulcolax) 10 mg DAILY PRN 10/31/16 08:15 10/31/16 08:15 10 MG Artificial Tears (Refresh Classic Drops) 1 drop PRN PRN 10/31/16 17:15 11/04/16 16:18 1 DROP Donepezil HCl (Aricept) 10 mg HS 11/01/16 21:00 11/05/16 20:08 10 MG Gentamicin Sulfate (Garamycin 0.3% Eye Drops) 2 drop QID 11/04/16 17:00 11/06/16 08:15 2 DROP Subjective Patient seen and chart reviewed. Case discussed with treatment team. Patient is pleasant and cooperative through interview with no complaints. He does state that he would like to "consult with his " in regards to placement but seems to be accepting overall. He has limited insight into behavior at home. Patient denies SI, HI, AVH, or adverse side effects related to medications. Per staff, patient has been calm and cooperative, without behavioral difficulties on the unit. He has tolerated cares from staff of both genders well. Patient slept well overnight. Appetite is good. VSS. No psychotropic PRNs required in the past 24 hours. Plan is to discharge to [facility] per family's wishes. Time of Service: 06:15 Start Time: 10:00 Stop Time: 10:20 Care >50% of this visit spent in counseling/coordination care. [facility] Exam Vitals Vital Signs Date Time Temp Pulse Resp B/P Pulse Ox O2 Delivery O2 Flow Rate FiO2 11/05/16 21:06 98.6 65 16 119/67 95 Room Air Physical examination performed by the hospitalist. Height (Feet): 5 Height (Inches): 8.00 Mental Status Exam Muscle Strength/Tone: Rigid Dressing: Casual Grooming: Good Attitude: Cooperative Motor Activity: Retardation, Tremors Eye Contact: Fair Speech: Slowed Volume: Normal Rhythm: Appropriate Rhythm Sensory: Alert Orientation: Disoriented to time, Disoriented to place, Oriented to person Mood: Neutral Affect: Stable, Restricted Rate of Thoughts: Delayed Thought Organization: Confused Associations: Illogical (at times) Abstract Reasoning: Poor abstract reasoning Thought Content: Normal Perception/Psychotic: Perception Normal Attention Span/Concentration: Short Span Language: Naming Impaired Fund of Knowledge: Poor fund of knowledge Memory: Poor-recent Suicidal Ideation: Denies Homicidal Ideation: Denies Insight: Limited Judgment: Limited Impulse Control: Good Assessment and Plan (1) Dementia with behavioral disturbance Assessment: Major neurocognitive disorder, moderate, Lewy body dementia suspected 11/01/16: Patient has not yet exhibited any problematic behavior on the unit. I suspect environmental change has been beneficial for patient's behavior and impulse control is such that he can maintain his behavior with caregivers other than his ; will continue to monitor. 11/02/16: Still awaiting records from [facility]; will discuss starting Ativan 0.5mg PO q HS with . 11/03/16: RN reports behaviors remain improved here. Will monitor and hold off on any further meds for now, particularly given his unsteadiness. 11/04/16: Continues to do fairly well in this environment. Working on [place] as is no longer able to care for him at home. 11/05/16: Patient continues to do well - I believe that environmental change will be beneficial in controlling behaviors without further increase of medication. Family is understanding of this and in agreement with plan to discharge to [facility] tomorrow. 11/06/16: Plan to discharge to [facility] tomorrow per family's wishes. Qualifiers: Qualified Codes: F02.81 - Dementia in other diseases classified elsewhere with behavioral disturbance; G30.8 - Other Alzheimer's disease (2) Osteoarthritis (3) Hypertriglyceridemia (4) BPH (benign prostatic hyperplasia) Qualifiers: Qualified Codes: N40.0 - Benign prostatic hyperplasia without lower urinary tract symptoms (5) Overweight (BMI 25.0-29.9) CAMILLE PAK MD Nov 06, 2016 08:41
--- NOTE | 2016-11-06 14:06 | PDOCECFAO ---
Admission Orders Admission Orders Admit to: [facility] Allergies: Coded Allergies: NKDA (Verified Allergy, Unknown, 10/30/16) Admitting Diagnosis Major Neurocognitive Disorder, moderate, rule out Lewy Body dementia Admitting Physician Yvrose Pak MD Attending Physician Yvrose Pak MD Code Status Do Not Resuscitate Anticipated LOS: Greater than 30 days Rehab Potential: Fair Rehab Prognosis: Fair Diet: Regular Wound/Incision Care: N/A May use Facility Protocol /SO: Yes May Have Flu Vaccine: Yes Evaluations/Treat: Psychiatric, As Needed Mcfp Certification I certify that SNF services are required to be given on an Inpatient basis because of the patients need for mcfp care on a continuing basis for the condition(s) for which he/she received inpatient hospital services prior to his/her transfer to the SNF. SNF inpatient care is necessary for the following reasons Not Applicable YVROSE PAK MD Nov 06, 2016 14:06
[2016-11-06] MEDS ORDERED: DONE10TA PO (14:07)
--- NOTE | 2016-11-06 14:25 | NUR ---
LEAK DETECTION ENGINEER--CARE ASSESSMENT/[facility] phone with pt's son, Alfred. He had talked with the patient by phone earlier and he felt pt. was handling the transition to [facility]. Alfred was going to talk with staff at [facility] regarding options for the patient's to also move to one of their apartments. He was happy that [facility] was able to accept pt. Jaquelin from [facility] came out and completed CARE assessment on patient.
[2016-11-06 16:20] VITALS: BP 140/75; PULSE 64; RESP 20; TEMP 97.8; O2SAT 96
--- NOTE | 2016-11-06 18:26 | NUR ---
summary pt has not slept since waking this am. compliant with all medication. pleasant and cooperative with all cares. no aggression or agitation noted. eats well. no complaints of pain or discomfort.
[2016-11-06] MEDS: DONEPEZIL 10 MG TABLET PO SCH (21:05)
[2016-11-06] MEDS: TAMSULOSIN 0.4 MG CAPSULE PO SCH (21:05)
[2016-11-06 23:03] VITALS: PULSE 56; RESP 16
[2016-11-06 23:15] VITALS: BP 159/81; PULSE 56; RESP 16; TEMP 97.2; O2SAT 98
--- NOTE | 2016-11-06 23:40 | NUR ---
Pt status Pt was visiting with family in his room at beginning of shift. Once visitors left, assessment was completed. Pt alert to person. Up SBA. Pt pleasant and cooperative with assessment. Denies pain. Denies SOA. Compliant with all HS meds. Pt was talking to this nurse about how sometimes he knows what he wants to say but the words don't come out right. Explained to pt it is alright and encouraged him to take time to think about what he wants to say. Pt was agreeable. Pt received a shower this shift. Pt did not display any verbal or physical aggression with cares. Very cooperative with shower and cares this shift. No behaviors. No agitation. No PRNs given. Currently sleeping. Bed rails up x 2 and alarm on. Will continue to monitor
--- NOTE | 2016-11-07 00:54 | NUR ---
Bed time Pt went to bed after his shower at 2130. Went to sleep at 2200. Up once to void at 2330. Currently sleeping. Bed rails up x 2 and alarm on. Did not sleep during day hours. Will continue to monitor
--- NOTE | 2016-11-07 00:56 | NUR ---
Chart Check 24 hour chart check completed
--- NOTE | 2016-11-07 06:11 | NUR ---
Summary Pt has been sleeping since 2199. Up once to use BR. Alert to person. Up SBA x 1. Pt has not displayed any verbal or physical aggression this shift. No PRNs given. Pt has been pleasant and cooperative with cares and meds. Compliant with all meds. Pt received a shower this shift and was cooperative. Currently sleeping. Bed rails up x 2 and alarm on. Will continue to monitor
--- NOTE | 2016-11-07 07:30 | NUR ---
Sleep Time Pt awake since 729.
[2016-11-07 08:00] VITALS: RESP 16
--- NOTE | 2016-11-07 08:00 | NUR ---
Pt Status Pt alert and oriented to person, place, date, and year. Ate breakfast well and is cooperative with medications. Understands dismissal today. Reports eyes feel much better today and noted slight redness.
[2016-11-07 08:23] VITALS: BP 138/82; PULSE 58; RESP 16; TEMP 97.9; O2SAT 99
[2016-11-07] MEDS: VORTIOXETINE 10 MG TABLET PO SCH (08:26)
[2016-11-07] MEDS: ASPIRIN *EC* 81mg TABLET PO SCH (08:28)
[2016-11-07] MEDS: MECLIZINE 12.5 MG TABLET PO SCH (08:28)
[2016-11-07] MEDS: MEMANTINE 5 MG TABLET PO SCH (08:28)
[2016-11-07] MEDS: GENTAMICIN 0.3% BOTH EYES SCH ×2 (08:29→12:29)
[2016-11-07] MEDS: EYE BOTH EYES SCH ×2 (08:29→12:29)
--- NOTE | 2016-11-07 08:47 | NUR ---
CM PT WILL D/C TO [facility] TODAY. THEY WILL TRANSPORT PT AT 3:00PM. PT SPOUSE IS AWARE OF D/C FOR TODAY AND TRANSPORT TIME. SPOUSE IS AWARE TO CONTACT CM IF NEEDS [facility].
[2016-11-07] MEDS: ARIPIPRAZOLE 10 MG TABLET PO SCH (08:53)
[2016-11-07] MEDS: [UNRECOGNIZED DRUG - OTHER] PO SCH (08:53)
--- NOTE | 2016-11-07 11:04 | PDOCECFAO ---
Admission Orders Admission Orders Admit to: Custodial Allergies: Coded Allergies: NKDA (Verified Allergy, Unknown, 10/30/16) Admitting Diagnosis Major Neurocognitive Disorder Due To Alzheimers Di Admitting Physician Yvrose Pak MD Code Status Do Not Resuscitate Anticipated LOS: Greater than 30 days Rehab Potential: Fair Rehab Prognosis: Fair Diet: Regular Wound/Incision Care: N/A May use Facility Protocol /SO: Yes May Have Flu Vaccine: Yes Evaluations/Treat: PT, Psychiatric, As Needed Custodial Certification I certify that SNF services are required to be given on an Inpatient basis because of the patients need for longterm care on a continuing basis for the condition(s) for which he/she received inpatient hospital services prior to his/her transfer to the SNF. SNF inpatient care is necessary for the following reasons Other (PT recommended for frequent falls) YVROSE PAK MD Nov 07, 2016 11:04
--- NOTE | 2016-11-07 11:44 | NUR ---
SHOOTING GALLERY OPERATOR--AM GROUP Pt. joined the group late and passively participated in psychoeducational group facilitated by [facility]. Talked with patients about importance of taking time for themselves, now that they have time. Reminded them that today can be as special as they make it. Talked about favorite foods from their childhood. Finished up group by listening to [facility] ward. Pt. demonstrates calm, pleasant mood with congruent affect. He does not verbalize his thoughts during group but is attentive to what others were saying. He continues to remain calm and attentive for entire group.
--- NOTE | 2016-11-07 15:10 | NUR ---
Dismissal Note Report called to "_Leeann Lopez "; unit contact information given along with plans for follow-up care with PCP and MH professional as outlined in PHS. No pending labs on discharge. Pt dismissed in stable condition and helped nurse pack belonging and was pleasant and cooperative. Pt sent with appropriate papers and medication list. present at time of dismissal and belongings reviewed with her. Pt was transported to main entrance and accompanied RN and [facility] Lopez transport staff.
--- NOTE | 2016-11-12 12:38 | NUR ---
CM CM LVM AT FACILITY WITH CONTACT INFO
== END 2016-11-07 15:10 | DRG 57 ==
LOC: ED 16:31 → EDHOLD 18:07 → GEN 20:55
PROVIDERS: ADMIT Psychiatry & Neurology Psychiatry; ATTEND Psychiatry & Neurology Psychiatry
DX: G30.9 Alzheimer's disease, unspecified (principal); F02.81 Dementia in other diseases classified elsewhere, unspecified severity, with behavioral disturbance; F32.9 Major depressive disorder, single episode, unspecified; F41.9 Anxiety disorder, unspecified; M19.91 Primary osteoarthritis, unspecified site; E78.1 Pure hyperglyceridemia; N40.0 Benign prostatic hyperplasia without lower urinary tract symptoms; E66.3 Overweight; H10.33 Unspecified acute conjunctivitis, bilateral; Z66 Do not resuscitate; Z79.82 Long term (current) use of aspirin; Z68.29 Body mass index [BMI] 29.0-29.9, adult
CPT/HCPCS: 36415; 80053; 80061; 81003; 82607; 82746; 83036; 84134; 84443; 85025; 86592; 93005

== ENCOUNTER → 2016-10-30 | Outpatient (CLI) | payer MEDICARE, OTHER ==
[~2016-10-30] MED LIST: ACET1TAB12 PO; ARIP10TA17 PO; ASPI-558 PO; BUPR100T13 PO; BUPR100T4 PO; CEPH-583 PO; DONE10TA PO; DONE10TA30 PO; GENT5DRO6 BOTH EYES; IOHEXOL 300 MG/ML 50ml INJECTION ONE; MECL12.585 PO; MEMA10TA12 PO; MEMA28CA PO; NORMAL SALINE 100 ML ONE; POLY30DR BOTH EYES; SALINE FLUSH 10ml SYRINGE ONE; TAMS0.4C47 PO; VORT10TA PO
[2016-10-30 14:40] LABS: ALBUMIN 4.5 G/DL (3.5-5.0); ALBUMIN/GLOBULIN RATIO 1.7 RATIO (1.1-2.2); ALKALINE PHOSPHATASE 63 U/L (38-126); ALT (SGPT) 22 U/L (21-72); ANION GAP 13 MEQ/L (5-15); AST (SGOT) 21 U/L (17-59); BUN/CREATININE RATIO 18 RATIO (6-26); CALCIUM 9.8 MG/DL (8.4-10.2); CHLORIDE 107 MEQ/L (98-107); CO2 - CARBON DIOXIDE 27 MEQ/L (22-30); CREATININE 1.3 MG/DL (0.8-1.5); GLOMERULAR FILTRATION RATE 54; GLUCOSE 107 MG/DL (75-110); POTASSIUM 4.4 MEQ/L (3.6-5); SODIUM 147 MEQ/L (134-144); TOTAL PROTEIN 7.1 G/DL (6.3-8.2)
--- NOTE | 2016-10-30 15:23 | DI ---
Indication: ITS.REASON: R41.82 ALTERED MENTAL STATUS; G30.9 Alzheimer's disease PROCEDURE: CT HEAD W/WO CONTRAST: Comparison: Head CT dated August 20, 2013 and brain MRI dated March 04, 2014 Technique: Axial CT images through the head were performed without and with IV contrast. Iterative Reconstruction dose reducing technique was utilized. Contrast: Omnipaque 300 50mL FINDINGS: The ventricles are of normal size, shape, and contour for the patient's age. The brainstem, cerebellum, and cerebral hemispheres have a normal morphology and CT attenuation. No hemorrhage, mass effect, mass lesions, or edema is evident. No areas of abnormal enhancement are seen. The visualized portions of the skull base, sinuses, and calvarium demonstrate no abnormality. IMPRESSION: Unremarkable head CT for the patient's age, both before and after contrast. .
== END ==
LOC: IMA 14:13
PROVIDERS: ATTEND Family Medicine
DX: R41.82 Altered mental status, unspecified (principal); G30.9 Alzheimer's disease, unspecified
CPT/HCPCS: 36415; 70470; 80053; J7050; Q9967